=== PATIENT | female | born 1940 | race Caucasian/White ===

== ENCOUNTER → 2017-01-21 | Outpatient (CLI) | payer OTHER | PROVIDERS: ATTEND Nurse Practitioner Family | DX: R13.10 Dysphagia, unspecified (principal); R05 Cough; Z86.73 Personal history of transient ischemic attack (TIA), and cerebral infarction without residual deficits | CPT/HCPCS: 74230; 92611; G8996; G8997; G8998 ==

== ENCOUNTER 2017-03-14 12:29 | Emergency (ER) | payer OTHER ==
[2017-03-14 12:39] VITALS: BP 119/70; PULSE 93; RESP 16; TEMP 98.4; O2SAT 92
[2017-03-14 12:50] LABS: COLOR ORANGE; LEUKOCYTE ESTERASE,URINE 2+ (NEGATIVE); NITRITE,URINE POSITIVE (NEGATIVE)
[2017-03-14 13:04] LABS: BACTERIA 2+ /hpf (NONE SEEN); MUCUS TRACE /lpf (NONE-1+); RBC,URINE 0-1 /hpf (0-3); WBC,URINE >182 /hpf (0-3); YEAST 1+ /hpf (NONE SEEN)
[2017-03-14] MEDS ORDERED: CEPHALEXIN 500 MG CAP PO ONE (13:08)
--- NOTE | 2017-03-14 13:10 | EDPHY ---
H & P Time Seen by Provider: 03/14/17 12:35 HPI/ROS: This patient complains of dysuria, frequency and hematuria. She is accompanied by her expander who also provides history. Patient's symptoms have been present over the past 2 days. Her recent history is notable for pessary placement by her family practitioner-Dr. Kuo last week for urinary incontinence. Patient has a history of stroke in uses a walker to ambulate. She provides basic responses to questions regarding history but her expander elaborates. ROS: No fevers chills or other constitutional symptoms HEENT: No complaints line pulmonary: No new complaints Cardiovascular: No complaints GI: No nausea vomiting : No back pain. No vaginal discharge. 7 point ROS is otherwise negative. Past Medical/Surgical History: Stroke Smoking Status: Never smoked Physical Exam: Physical Exam Vital signs are normal. General: No acute distress Eyes: Pupils equal and react to light. Extraocular motions are intact. Lungs: No respiratory distress. Back: No CVA tenderness Cardiac: Brisk capillary refill is intact throughout. abdomen: Mild suprapubic tenderness with no guarding or rebound. Skin: No rash or pallor. Neuro: Alert With no new focal deficits. Initial differential diagnosis: Cystitis, vaginitis, interstitial cystitis Constitutional: Initial Vital Signs Temperature (C) 36.9 C 03/14/17 12:31 Heart Rate 93 03/14/17 12:31 Respiratory Rate 16 03/14/17 12:31 Blood Pressure 119/70 03/14/17 12:31 O2 Sat (%) 92 03/14/17 12:31 O2 Delivery Mode Room Air Allergies/Adverse Reactions: Latex, Natural Rubber Allergy (Severe, Verified 03/14/17 12:39) Rash procaine HCl [From Novocain] Allergy (Severe, Verified 03/14/17 12:39) nausea Home Medications: Medication Instructions Recorded Amlodipine Besylate 03/14/17 Cephalexin [Keflex (*)] 500 mg PO TID #21 cap 03/14/17 Lisinopril 03/14/17 Plavix 03/14/17 Pravastatin Sodium 03/14/17 MDM/Departure - MDM Diagnostics: urinalysis reveals leukocytosis bacteria consistent with UTI. Cultures pe Medications Given: Discontinued Medications Cephalexin HCl (Keflex) 500 mg PO EDNOW ONE PRN Reason: Protocol Stop: 03/14/17 13:09 Last Admin: 03/14/17 13:15 Dose: 500 mg ED Course/Re-evaluation: discussion: Findings consistent with cystitis. I counseled patient and expander regarding this. She is given a 1st dose of Keflex. I feel communication is a bit limited due to underlying stroke so will cover her with a week's worth of Keflex rather than 3-5 days given potential early pyelonephritis. - Depart Disposition: Home, Routine, Self-Care Clinical Impression: Cystitis Clinical Impression: (Ruled Out): Dysuria Condition: Good Instructions: Urinary Tract Infection in Women (ED) Additional Instructions: Diagnosis: Bladder infection Plan: Drink plenty fluids Keflex antibiotic as prescribed Continue peridium /azo as needed for dysuria Call for recheck by her primary care physician -Dr. Kuo for later this week. Return for any significant worsening despite the treatment plan Prescriptions: Cephalexin [Keflex (*)] 500 mg PO TID #21 cap Referrals: Xiomara Kuo MD [Primary Care Provider] - As per Instructions
== END 2017-03-14 13:19 | disposition home or self-care (01) ==
LOC: CED 12:29
DX: N30.91 Cystitis, unspecified with hematuria (principal); B96.20 Unspecified Escherichia coli [E. coli] as the cause of diseases classified elsewhere; Z91.040 Latex allergy status
CPT/HCPCS: 81003-PO; 81015-PO

== ENCOUNTER 2017-04-07 14:42 | Emergency (ER) | payer OTHER ==
--- NOTE | 2017-04-07 15:19 | EDPHY ---
H & P Time Seen by Provider: 04/07/17 14:55 HPI/ROS: CHIEF COMPLAINT: left leg pain for 1 month HISTORY OF PRESENT ILLNESS: History from patient and caregiver and daughter. She presents with intermittent left leg pain and swelling for the past month which typically involves pain in the thigh on the lateral surface worse with weight-bearing or movement and intermittent swelling. The daughter describes that sometimes he can see her carbajal and sometimes she cannot. This is not associated with injury fall or trauma, skin changes, chest pain or shortness of breath. No weakness or numbness. No hip pain. No fevers or chills. She is waking up over the last couple of days asking for acetaminophen for her left leg which is a bit different than usual. The patient says it only feels different than her previous sciatica because it is not as severe. 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 She saw her physician who ran lab tests a couple of weeks ago. : No incontinence, to urinary tract infections within the last month. A comprehensive 10 point review of systems is otherwise negative aside from elements mentioned in the history of present illness. PAST MEDICAL HISTORY: Includes lumbar spine fusion, hip surgery, hypertension, hyperlipidemia, hemorrhagic and ischemic stroke, vascular dementia and resting tremor. Social history: Here with daughter and caregiver. General Appearance: Alert and conversant, cooperative. Eyes: No scleral icterus. ENT, Mouth: Normal mucous membranes. Respiratory: Normal respiratory effort, breath sounds equal, lungs are clear to auscultation. Cardiovascular: Regular rate and rhythm. Gastrointestinal: Abdomen is soft and non tender. Neurological: Alert and oriented x3. Normally conversant. Face symmetric, normal movement and sensation in all extremities. She wears a brace on her right foot for foot drop after her stroke. Bilateral DTRs 2+ patella. Left foot toes downgoing. No clonus. Straight leg raising positive left leg at 45 degrees. Skin: Warm and dry, no rashes. No redness warmth or blisters or eschar on the left leg. Musculoskeletal: No peripheral edema and no joint swelling. Normal range of motion of left hip knee and ankle without any pain on rotational axial loading of the hip. Compartments are soft. Psychiatric: Not agitated. Emergency Department course/MDM: I think clinically be very unlikely this patient has fracture or arterial occlusion, compartment syndrome, or acute infection. Differential does include but not limited to [place] cyst, DVT, sciatica or muscular. Plan for left lower extremity ultrasound. 1631: normal ultrasound per Dr. Coleman. Results discussed with patient daughter and caregiver, symptomatic care, outpatient follow-up. She is ambulatory to the bathroom with walker. Smoking Status: Never smoked Constitutional: Initial Vital Signs Temperature (C) 36.9 C 04/07/17 14:44 Heart Rate 78 04/07/17 14:44 Respiratory Rate 18 04/07/17 14:44 Blood Pressure 137/83 H 04/07/17 14:44 O2 Sat (%) 94 04/07/17 14:44 O2 Delivery Mode Room Air Allergies/Adverse Reactions: Latex, Natural Rubber Allergy (Severe, Verified 04/07/17 14:43) Rash procaine HCl [From Novocain] Allergy (Severe, Verified 04/07/17 14:43) nausea Home Medications: Medication Instructions Recorded Amlodipine Besylate 03/14/17 Lisinopril 03/14/17 Plavix 03/14/17 Pravastatin Sodium 03/14/17 Cephalexin [Keflex (*)] 500 mg PO 04/07/17 Medical Decision Making - Diagnostics Imaging Results: Imaging Impressions Extremity Venous Study 04/07/17 15:12 Impression: No deep venous thrombosis left leg. Results called and discussed with Dr. Ace Burciaga at 04/07/2017 16:30. Differential Diagnosis: Differential considered including but not limited to fracture, DVT, arterial occlusion, compartment syndrome, cellulitis, sciatica. Departure - Departure Disposition: Home, Routine, Self-Care Clinical Impression: Leg pain, left Condition: Good Instructions: Leg Pain (ED) Additional Instructions: Ultrasound is negative for [place] cyst or blood clot. It is possible this is mild sciatica. Referrals: Xiomara Kuo MD [Primary Care Provider] - As per Instructions
[2017-04-07 17:11] VITALS: BP 115/73; PULSE 68; RESP 16; TEMP 98.2; O2SAT 91
== END 2017-04-07 17:02 | disposition home or self-care (01) ==
DX: M79.605 Pain in left leg (principal); I10 Essential (primary) hypertension; Z91.040 Latex allergy status

== ENCOUNTER → 2017-08-25 | Outpatient (CLI) | payer OTHER | LOC: CIMAGING 14:33 | PROVIDERS: ATTEND Family Medicine | DX: M25.551 Pain in right hip (principal); M54.5 Low back pain; G89.29 Other chronic pain; R93.8 Abnormal findings on diagnostic imaging of other specified body structures; Z96.641 Presence of right artificial hip joint; Z98.1 Arthrodesis status | CPT/HCPCS: 73502-PO ==

== ENCOUNTER 2017-11-10 17:46 | Emergency (ER) | payer OTHER ==
[2017-11-10] MEDS ORDERED: NS 500 ML IV ONE (18:41)
[2017-11-10] MEDS ORDERED: IOPAMIDOL (ISOVUE-300) 100 ML BTL ONE (18:45)
--- NOTE | 2017-11-10 18:53 | EDPHY ---
H & P Time Seen by Provider: 11/10/17 18:15 HPI/ROS: HPI Fall, left thorax injury. 77-year-old female by private vehicle with daughter and son-in-law. This patient has had CVAs in the past. She has some right-sided weakness. She uses a walker to ambulate. Yesterday morning, she got up at 6:00 a.m. To go to bathroom. She leaned to her left side slipped off her walker and fell to the ground hitting primarily the left side of her abdomen and lower chest. She complains of pain and bruising to this area. She denies extremity pain. She did not hit her head. No loss of consciousness. No neck pain. No new loss of sensation or focal weakness. She is not on anticoagulation. ROS: Constitutional: No fever, no chills. No weakness. Respiratory: No cough. No shortness of breath. Cardiac: No chest pain, no palpitations. Gastrointestinal: No abdominal pain, no vomiting, no diarrhea. Genitourinary: No hematuria. Musculoskeletal: No back pain. No neck pain. As above. No extremity pain.. Skin: No rashes. Neurological: No headache. No focal weakness or altered sensation. Past medical history: Lumbar fusion, left hip replacement, CVA x3, hyperlipidemia, hypertension, collar bone fracture, dementia, intention tremor. Social history: Lives with family. Nonsmoker. No alcohol. Physical Exam: General Appearance: Alert, no distress. This patient is responding to questions appropriately and in full sentences. This patient appears well- hydrated and well-nourished. Head: Normocephalic atraumatic. Face: Facial bones are stable on palpation. Eyes: Pupils equal and round and reactive to light, no pallor or injection. No lid erythema or edema. ENT, Mouth: Mucous membranes moist. Dentition is intact. No malocclusion of the jaw. No tongue lacerations or abrasions. Pharynx is clear. The bilateral nasal canals are clear. No septal hematoma. Respiratory: There are no retractions, lungs are clear to auscultation with good air movement bilaterally. Chest wall is stable to AP and lateral palpation. She has got an area of ecchymosis involving the left lateral lower thorax and upper abdomen at the posterior mid axillary line with tenderness on palpation. This starts just below the costal margin. No bony step-off or deformity is noted on palpation. Cardiovascular: Regular rate and rhythm. No murmur. Gastrointestinal: Abdomen is soft and nontender, no masses, bowel sounds normal. Neurological: Motor sensory function is intact. Cranial nerves are normal. Cerebellar function intact. Skin: Warm and dry, no rashes. No lacerations, abrasions or contusions. Musculoskeletal: Neck is supple and nontender. The trachea is midline. No midline cervical, thoracic, lumbar or sacral tenderness on palpation. No flank tenderness on palpation. Extremities are symmetrical, full range of motion. All joints in the bilateral upper and bilateral lower extremities range without pain or impingement. No tenderness on palpation of the long bones in the bilateral upper and bilateral lower extremities. Psychiatric: No agitation. No depression. Database: EKG: Imaging: CT chest with IV contrast: Significant for left-sided anterior lateral nondisplaced rib fractures 9. And 10. Results were discussed with staff radiologist Dr. Huber Starr. Spleen was unremarkable. Other chronic findings. No other significant acute pathology. Procedures: Emergency department course: Vital signs reviewed. IV was placed. She was started on IV normal saline with 500 cc to be given over the next hour. I-STAT creatinine is 1.4. I discussed this with staff radiologist Dr. Huber starr. Renal protective protocol will be used. He feels comfortable with contrast enhancement with a creatinine under 1.5. 8:25 p.m., patient re-evaluated. Pain currently well controlled. I discussed the results of her CT scan as above with her and family. I discussed admission for observation and pain control. The patient does not want to be admitted. The family feels comfortable taking her home. Because of her creatinine I will avoid NSAIDs. Patient will be prescribed [place]. As well as stool softeners. She is also concerned about constipation. I will send her home with magnesium citrate as well. She will follow up with her primary care physician in 1-2 days for re-evaluation. The family can easily return her to the emergency department if required. Return to emergency department precautions were thoroughly discussed with the patient and family. All of their questions were answered. The patient was discharged in good condition. Differential Diagnosis: The differential diagnosis on this patient includes but is not limited to rib fracture, splenic injury, renal contusion. This represents a partial list of diagnoses considered. These considerations are based on history, physical exam , past history, reassessment and diagnostic testing. Smoking Status: Never smoked Constitutional: Initial Vital Signs Temperature (C) 36.8 C 11/10/17 18:05 Heart Rate 77 11/10/17 18:05 Respiratory Rate 16 11/10/17 18:05 Blood Pressure 115/71 11/10/17 18:05 O2 Sat (%) 91 L 11/10/17 18:05 O2 Delivery Mode Room Air Allergies/Adverse Reactions: Latex, Natural Rubber Allergy (Severe, Verified 04/07/17 14:43) Rash procaine HCl [From Novocain] Allergy (Severe, Verified 04/07/17 14:43) nausea Home Medications: Medication Instructions Recorded Amlodipine Besylate 03/14/17 Lisinopril 03/14/17 Pravastatin Sodium 03/14/17 Aleve 11/10/17 Gabapentin 11/10/17 Hydrocodone/APAP 5/325 [[place] 1 - 2 tab PO Q4-6PRN PRN #10 tab 11/10/17 5/325 (*)] Senna 11/10/17 Docusate Sodium [Colace 100 MG (*)] 100 mg PO TID #20 cap 11/11/17 Medical Decision Making - Data Points Medications Given: Discontinued Medications Hydrocodone Bitart/Acetaminophen ([place] 5/325mg Prepack#6) 1 btl TAKEHOME EDNOW ONE Stop: 11/10/17 20:30 Last Admin: 11/10/17 20:45 Dose: 1 btl Sodium Chloride (Ns) 500 mls @ 0 mls/hr IV ONCE ONE; Wide Open PRN Reason: Protocol Stop: 11/10/17 18:42 Last Admin: 11/10/17 18:50 Dose: 500 mls Magnesium Citrate (Magnesium Citrate) 300 ml PO ONCE ONE Stop: 11/10/17 20:29 Last Admin: 11/10/17 20:46 Dose: 300 ml Departure - Departure Disposition: [facility] IP Clinical Impression: Fall, Rib fractures, Renal insufficiency Condition: Good Instructions: Hydrocodone/Acetaminophen (By mouth), How to Use an Incentive Spirometer (ED), Rib Fracture (ED) Additional Instructions: Read and follow provided instructions. Follow-up with your primary care physician in 1-2 days for re-evaluation. You should have you're renal function rechecked in a week. Drink lots of fluids. Keep well hydrated. Take medication as prescribed. [place]/Percocet dosin-2 every 4-[address] not drive on this medication. Return to the emergency department for worsening or uncontrolled pain, difficulty breathing, cough, fever or other serious concerns. Magnesium citrate: Drink entire contents of bottle to treat constipation. Take stool softeners as prescribed 1 on narcotic pain medication. Referrals: Gaby Blackwell MD [Primary Care Provider] - As per Instructions Prescriptions: Docusate Sodium [Colace 100 MG (*)] 100 mg PO TID #20 cap Hydrocodone/APAP 5/325 [[place] 5/325 (*)] 1 - 2 tab PO Q4-6PRN PRN #10 tab PRN Reason: Pain, Moderate
[2017-11-10] MEDS ORDERED: MAGNESIUM CITRATE 300 ML BOTTLE PO ONE (20:28)
[2017-11-10] MEDS ORDERED: HYDROCOD/APAP 5/325 PREPACK#6 BTL TAKEHOME ONE (20:29)
[2017-11-10 21:04] VITALS: BP 123/76
== END 2017-11-10 21:04 ==
DX: S22.42XA Multiple fractures of ribs, left side, initial encounter for closed fracture (principal); E86.9 Volume depletion, unspecified; N28.9 Disorder of kidney and ureter, unspecified; I10 Essential (primary) hypertension; Z86.73 Personal history of transient ischemic attack (TIA), and cerebral infarction without residual deficits; Z91.040 Latex allergy status; W01.198A Fall on same level from slipping, tripping and stumbling with subsequent striking against other object, initial encounter
CPT/HCPCS: 74177; 96360; 99285; Q9967; 82947-QW

== ENCOUNTER 2017-12-22 10:40 | Inpatient (IN) | payer OTHER ==
--- NOTE | 2017-12-22 11:28 | EDPHY ---
H & P Stated Complaint: fall this am .? cause .pt does not remember .~830a Time Seen by Provider: 12/22/17 11:11 HPI/ROS: CHIEF COMPLAINT: Fall, head injury HISTORY OF PRESENT ILLNESS: This is a 77-year-old female on Plavix with a history of dementia who presents with her boyfriend and caregiver. Patient went to the bathroom this morning, using her walker as usual, when the boyfriend heard a fall from the bathroom. There was no witnessed loss of consciousness. He found her on the tile floor. Patient reported immediately that her head hurts. She has been unable to otherwise state what may have caused the fall. Her history is relatively limited secondary to her dementia. She tells me her head hurts in her low back hurts. She denies any chest pain or shortness of breath. She denies any nausea or vomiting. Caregiver and family report that the patient has been otherwise at her usual baseline. Patient was recently admitted to [facility] for a GI hemorrhage felt to be related to ibuprofen is that she was taking after hip fracture. This was approximately 3 weeks ago. REVIEW OF SYSTEMS: Aside from elements discussed in the HPI, a comprehensive 10-point review of systems was reviewed and is negative. PAST MEDICAL HISTORY: CVAs x2. Hip fracture, GI hemorrhage secondary to ibuprofen, lumbar fusion. Vascular dementia. History of footdrop. SOCIAL HISTORY: Here with a caregiver and family. VITAL SIGNS Reviewed by me. GENERAL: Elderly female. Alert. Family reports somewhat more sedated than typical. HEENT: Abrasion at the left occipital region. Eyes: Right eye lid mildly swollen and erythematous. Difficult pupillary exam. Left eye: Unable to adduct, difficulty with AB duction. No icterus, no injection. Mouth: moist mucous membranes. No erythema or lesions. Neck: supple with no adenopathy. No tenderness noted. LUNGS: Clear to auscultation bilaterally, no wheezes, rhonchi or rales. CARDIAC: Regular rate and rhythm, no rubs, murmurs or gallops. ABDOMEN: Soft, nontender, nondistended, bowel sounds normal. BACK: Patient reports tenderness along the lumbar spine. Abrasion noted the top of the T-spine. EXTREMITIES: No trauma. No edema. Braces in place on the right lower extremity to help with footdrop. NEURO: Alert and oriented, cranial nerves 2-12: Asymmetry of the mouth which family reports is old. Left eye: Difficulty with Adduction and abduction. Sensory exam unable to be tested. SKIN: Warm and dry, no rash. PSYCHIATRIC: Seems somewhat somnolent. - Personal History Current Tetanus Diphtheria and Acellular Pertussis (TDAP): Yes Tetanus Vaccine Date: within 10 years - Medical/Surgical History Hx Asthma: No Hx Chronic Respiratory Disease: No Hx Diabetes: No Hx Cardiac Disease: Yes Hx Renal Disease: No Hx Cirrhosis: No Hx Alcoholism: No Hx HIV/AIDS: No Hx Splenectomy or Spleen Trauma: No Other PMH: Lumbar fusion, Hip surgery,fx collarbone with surgery, htn and hyperlipidemia. cva x3 (2 strokes in 2013 hemmorhagic and ischemic; 1 stroke in 2015) -carotid blockage-surgery. vascular dementia; intention tremor - Social History Smoking Status: Never smoked Constitutional: Initial Vital Signs Temperature (C) 36.7 C 12/22/17 10:51 Heart Rate 69 12/22/17 10:51 Respiratory Rate 18 12/22/17 10:51 Blood Pressure 121/53 H 12/22/17 10:51 O2 Sat (%) 96 12/22/17 10:51 O2 Delivery Mode Nasal Cannula O2 (L/minute) 1 Allergies/Adverse Reactions: Latex, Natural Rubber Allergy (Severe, Verified 12/22/17 10:57) Rash procaine HCl [From Novocain] Allergy (Severe, Verified 12/22/17 10:57) nausea methylphenidate [From Ritalin] Allergy (Verified 12/22/17 10:57) Home Medications: Medication Instructions Recorded Lisinopril/Hctz 10/12.5 mg 0.5 ea PO DAILY 03/14/17 [Zestoretic/Prinzide 10/12.5MG (*)] Pravastatin Sodium 20 mg PO DAILY 03/14/17 amLODIPine BESYLATE [Norvasc 5 mg 5 mg PO DAILY 03/14/17 (*)] Gabapentin [Neurontin 100 MG (*)] 200 mg PO BID 11/10/17 ARIPiprazole [Abilify 5 mg (*)] 2.5 mg PO DAILY 12/22/17 Acetaminophen [Tylenol ES 500 mg 1,000 mg PO BID PRN 12/22/17 (*)] Ascorbic Acid [Vitamin C 500 mg 500 mg PO DAILY 12/22/17 (*)] Carboxymethylcellulose 1% [Refresh 1 - 3 drops EACHEYE QID PRN 12/22/17 Celluvisc (*)] Cetirizine [ZyrTEC 10 mg (*)] 10 mg PO DAILY 12/22/17 Clopidogrel Bisulfate [Plavix (*)] 75 mg PO DAILY 12/22/17 Estring 2mg 1 each VG Q90D 12/22/17 Polyethylene Glycol 3350 [Miralax 17 gm PO DAILY 12/22/17 17 gm (*)] buPROPion XL [Wellbutrin Xl] 150 mg PO DAILY 12/22/17 Medical Decision Making ED Course/Re-evaluation: 77-year-old female with an unwitnessed fall today. She has a history of CVAs in the past x3, 1 hemorrhagic according to the family. EKG: Right bundle branch block. CT scan: 1. There is a left occipital subgaleal hematoma, with contrecoup intracranial hemorrhage adjacent to the left anterior interhemispheric falx and interdigitating with the sulci of the left frontal subcortex. There is no associated subfalcine herniation. 2. Moderate underlying cerebral cortical atrophy with chronic microvascular ischemic gliosis, and evidence of old lacunar infarcts involving the right basal ganglia. CT scan the cervical spine demonstrates significant stenosis C3-C4 to C6-C7, no acute injury. Laboratory evaluation is largely unremarkable. Troponin is negative. PT INR is normal. Patient's course discussed with Dr. Paxton Ambrosio. Patient will be admitted to step-down as an isolated head trauma on Plavix. We discussed reversal of Plavix with TXA. DDAVP and platelets are not available to me here at [facility] Emergency Department. Dr. Ambrosio recommendation at this time is to hold on any type of reversal. Patient's course was also discussed with Dr. Ramone Romero. Patient will be transferred to [facility], for an evaluation the emergency department as per trauma system requirements. Dr. Perez is aware of the patient's transfer as well. Patient also had lumbar spine x-ray which does not demonstrate any acute fractures on my reading. Patient's daughter, Isabel, who is power of civil rights attorney, presented to the emergency department. We discussed the findings. She is in agreement with the plan to transfer. We discussed the patient's current code status which is full COR. Daughter understands the situation and the potential severity of the injury. Differential Diagnosis: Differential diagnosis of this patient's fall was considered including but not limited to intracranial injury, CVA, syncope, cardiac arrhythmia, mechanical fall, lacerations, abrasions, and contusions. Consult/Admit Bed Type: Dr Ambrosio, StepDown - Data Points Laboratory Results: Laboratory Results 12/22/17 11:45 12/22/17 11:45 Medications Given: Amlodipine Besylate (Norvasc) 5 mg PO DAILY JANUSZ Stop: 06/21/18 08:59 Last Admin: 12/23/17 07:48 Dose: 5 mg Aripiprazole (Abilify) 2.5 mg PO DAILY JANUSZ Stop: 06/21/18 08:59 Last Admin: 12/23/17 07:48 Dose: 2.5 mg Bupropion HCl (Wellbutrin Xl) 150 mg PO DAILY JANUSZ Stop: 06/21/18 08:59 Last Admin: 12/23/17 07:49 Dose: 150 mg Carbamide Peroxide (Debrox) 5 drop EACHEAR BID JANUSZ Stop: 06/20/18 20:59 Last Admin: 12/23/17 08:00 Dose: 5 drops Cetirizine HCl (Zyrtec) 10 mg PO DAILY JANUSZ Stop: 06/21/18 08:59 Last Admin: 12/23/17 07:48 Dose: 10 mg Gabapentin (Neurontin) 200 mg PO BID JANUSZ Stop: 06/20/18 20:59 Last Admin: 12/23/17 07:49 Dose: 200 mg Sodium Chloride (Ns) 1,000 mls @ 100 mls/hr IV CONT JANUSZ Stop: 06/20/18 19:29 Last Admin: 12/22/17 20:27 Dose: 1,000 mls Melatonin (Melatonin) 3 mg PO HS JANUSZ Stop: 06/20/18 20:59 Last Admin: 12/22/17 20:27 Dose: 3 mg Miscellaneous Medication (Estring 2mg) 1 each VG Q90D JANUSZ Stop: 06/20/18 15:59 Last Admin: 12/22/17 16:33 Dose: Not Given Morphine Sulfate (Morphine) 1 - 2 mg IVP Q1HR PRN PRN Reason: Pain, Severe Unable to Take PO Stop: 01/02/18 04:40 Last Admin: 12/23/17 05:29 Dose: 2 mg Polyethylene Glycol (Miralax) 17 gm PO DAILY [facility] Stop: 06/21/18 08:59 Last Admin: 12/23/17 07:47 Dose: 17 gm Pravastatin Sodium (Pravachol) 20 mg PO DAILY JANUSZ Stop: 06/21/18 08:59 Last Admin: 12/23/17 07:48 Dose: 20 mg Senna/Docusate Sodium (Senokot-S) 1 - 2 tab PO BID JANUSZ PRN Reason: Protocol Stop: 06/20/18 20:59 Last Admin: 12/23/17 07:49 Dose: 1 tab Discontinued Medications Morphine Sulfate (Morphine) 2 mg IVP EDNOW ONE Stop: 12/22/17 13:41 Last Admin: 12/22/17 13:50 Dose: 2 mg Morphine Sulfate (Morphine) 1 - 2 mg IVP Q1HR PRN PRN Reason: Pain, Severe Unable to Take PO Stop: 01/01/18 15:39 Last Admin: 12/23/17 00:46 Dose: 2 mg Departure - Departure Disposition: [facility] Inpatient Acute Clinical Impression: Intracranial hemorrhage Back pain Qualifiers: Back pain location: low back pain Chronicity: unspecified Back pain laterality : midline Sciatica presence: without sciatica Qualified Code(s): M54.5 - Low back pain Fall Qualifiers: Encounter type: initial encounter Qualified Code(s): W19.XXXA - Unspecified fall, initial encounter Condition: Fair
--- NOTE | 2017-12-22 11:46 | CPEKG ---
Heart Rate: 70 RR Interval: 857 P-R Interval: 156 QRSD Interval: 132 QT Interval: 416 QTC Interval: 449 P [place]: 50 QRS [place]: 57 T Wave [place]: -11 EKG Severity - ABNORMAL ECG - EKG Impression: SINUS RHYTHM EKG Impression: RIGHT BUNDLE BRANCH BLOCK Electronically Signed By: Rajat Crawford 25-Dec-2017 07:00:47
[2017-12-22 12:21] LABS: PLATELET COUNT 370 10^3/uL (150-400)
[2017-12-22 12:29] LABS: INR 0.97 (0.83-1.16); PROTIME(PATIENT) 12.8 SEC (12.0-15.0)
[2017-12-22] MEDS ORDERED: TRANEXAMIC ACID 1,000 MG/10 ML VIAL ONE (12:43)
--- NOTE | 2017-12-22 14:44 | EDPHY ---
H & P Stated Complaint: fall this am .? cause .pt does not remember .~830a Time Seen by Provider: 12/22/17 11:11 HPI/ROS: CHIEF COMPLAINT: Fall HISTORY OF PRESENT ILLNESS: Patient is a 77-year-old female transferred from [facility] ER for intracranial hemorrhage and admission. She does not remember the incident but apparently fell in the bathroom this morning. She has found by her boyfriend. She was taken to the [facility] where she had CT of her head and neck that revealed intracranial hemorrhage. She also complains of some right hip pain. Her daughter states that this is somewhat chronic for her and x-rays previously been negative. She has baseline dementia. REVIEW OF SYSTEMS: Constitutional: denies: chills, fever, recent illness, recent injury EENTM: denies: blurred vision, double vision, nose congestion Respiratory: denies: cough, shortness of breath Cardiac: denies: chest pain, irregular heart rate, lightheadedness, palpitations Gastrointestinal/Abdominal: denies: abdominal pain, diarrhea, nausea, vomiting, blood streaked stools Genitourinary: denies: dysuria, frequency, hematuria, pain Musculoskeletal: denies: joint pain, muscle pain Skin: denies: lesions, rash, jaundice, bruising Neurological: denies: headache, numbness, paresthesia, tingling, dizziness, weakness Hematologic/Lymphatic: denies: blood clots, easy bleeding, easy bruising Immunologic/allergic: denies: HIV/AIDS, transplant Nursing assessment reviewed Vital signs reviewed slightly hypoxic Patient is alert not anxious or lethargic and in no distress HEAD: shows no evidence of trauma no raccoon eyes, no Patton sign. NECK: is nontender and has painless range of motion, trachea is midline, EYES: Some neglect to the right visual field. Left eye stops at midline ENT: Normal external inspection, airway intact, no dental or oral injuries, no clotted nasal blood, no septal hematoma, no hemotympanum CARDIOVASCULAR: heart sounds normal, not tachycardic or bradycardic, Chest is non-tender no rib tenderness no palpable fracture, no crepitus, no subcutaneous emphysema RESPIRATORY: no splinting, no paradoxical movements, gross sounds normal, no wheezes no rales no rhonchi, no respiratory distress ABDOMEN: Abdomen is nontender in all 4 quadrants no guarding no rebound, no distention, no hernias, no masses or bruits. GENITAL/RECTAL: Normal external inspection, Stable pelvis NEUROLOGIC/PSYCH: Oriented x3, cranial nerves normal as assessed, face symmetrical, sensation normal, motor grossly normal, not perseverating, cranial nerves II through XII intact with the exception of 6 nerve in left eye which is baseline normal reflexes Aung Coma score: 15 SKIN: Intact, warm, dry, no ecchymosis, no lacerations, nondiaphoretic. BACK: No CVA tenderness, no vertebral point tenderness, no muscle spasm normal range of motion EXTREMITIES: Brace on right lower leg pelvis stable, but points to pain in her right inguinal region nontender able to bear weight, no pulse deficit, normal range of motion, normal color and temperature Source: Patient Exam Limitations: No limitations - Personal History Current Tetanus Diphtheria and Acellular Pertussis (TDAP): Yes Tetanus Vaccine Date: within 10 years - Medical/Surgical History Hx Asthma: No Hx Chronic Respiratory Disease: No Hx Diabetes: No Hx Cardiac Disease: Yes Hx Renal Disease: No Hx Cirrhosis: No Hx Alcoholism: No Hx HIV/AIDS: No Hx Splenectomy or Spleen Trauma: No Other PMH: Lumbar fusion, Hip surgery,fx collarbone with surgery, htn and hyperlipidemia. cva x3 (2 strokes in 2013 hemmorhagic and ischemic; 1 stroke in 2016) -carotid blockage-surgery. vascular dementia; intention tremor - Family History Significant Family History: No pertinent family hx - Social History Smoking Status: Never smoked Alcohol Use: Sober Constitutional: Initial Vital Signs Temperature (C) 36.7 C 12/22/17 10:51 Heart Rate 69 12/22/17 10:51 Respiratory Rate 18 12/22/17 10:51 Blood Pressure 121/53 H 12/22/17 10:51 O2 Sat (%) 96 12/22/17 10:51 O2 Delivery Mode Nasal Cannula O2 (L/minute) 1 Allergies/Adverse Reactions: Latex, Natural Rubber Allergy (Severe, Verified 12/22/17 10:57) Rash procaine HCl [From Novocain] Allergy (Severe, Verified 12/22/17 10:57) nausea methylphenidate [From Ritalin] Allergy (Verified 12/22/17 10:57) Home Medications: Medication Instructions Recorded Lisinopril/Hctz 10/12.5 mg 0.5 ea PO DAILY 08/13/17 [Zestoretic/Prinzide 10/12.5MG (*)] Pravastatin Sodium 20 mg PO DAILY 03/14/17 amLODIPine BESYLATE [Norvasc 5 mg 5 mg PO DAILY 03/14/17 (*)] Gabapentin [Neurontin 100 MG (*)] 200 mg PO BID 11/10/17 ARIPiprazole [Abilify 5 mg (*)] 2.5 mg PO DAILY 12/22/17 Acetaminophen [Tylenol ES 500 mg 1,000 mg PO BID PRN 12/22/17 (*)] Ascorbic Acid [Vitamin C 500 mg 500 mg PO DAILY 12/22/17 (*)] Carboxymethylcellulose 1% [Refresh 1 - 3 drops EACHEYE QID PRN 12/22/17 Celluvisc (*)] Cetirizine [ZyrTEC 10 mg (*)] 10 mg PO DAILY 12/22/17 Clopidogrel Bisulfate [Plavix (*)] 75 mg PO DAILY 12/22/17 Estring 2mg 1 each VG Q90D 12/22/17 Polyethylene Glycol 3350 [Miralax 17 gm PO DAILY 12/22/17 17 gm (*)] buPROPion XL [Wellbutrin Xl] 150 mg PO DAILY 12/22/17 Medical Decision Making - Diagnostics Imaging Results: Imaging Impressions Cervical Spine CT 12/22/17 11:26 Impression: 1. There is a left occipital subgaleal hematoma, with contrecoup intracranial hemorrhage adjacent to the left anterior interhemispheric falx and interdigitating with the sulci of the left frontal subcortex. There is no associated subfalcine herniation. 2. Moderate underlying cerebral cortical atrophy with chronic microvascular ischemic gliosis, and evidence of old lacunar infarcts involving the right basal ganglia. UNENHANCED CT SCAN OF THE CERVICAL SPINE Technique: A multidetector unenhanced helical CT scan was obtained from the clivus caudally through the upper thoracic spine, with images reformatted at 1.00 mm increments, and are reviewed in soft tissue, bone, and lung windows. Parasagittal and paracoronal reconstructed images are reviewed on the workstation. The DFOV is 16.9 cm. A dose reduction protocol was used. Findings: There is a stable configuration of the cervical vertebral body heights and alignments, compared to the reconstructed sequences associated with the CTA of 03/22/2013. There are trace retrolistheses of C3-C4 and C4-C5, and trace degenerative anterolistheses at C7-T1 and T1-2. There is advanced degenerative disk space narrowing at C3-C4, C4-C5, C5-C6, and C6-C7, with mild degenerative narrowing of C7-T1. There are ventral and dorsal traction osteophytes, most pronounced from C3 through C6. There is no acute fracture or facet malalignment. The interspinous distances are appropriate. The patient's head is tilted to the left, which likely accounts for the atlantoaxial alignment , and the appearance is similar to the previous study in 2013. The base and the tip of the dens are intact, and the predental space is normal. The prevertebral soft tissues are normal. There is no paravertebral or epidural hematoma observed. The craniocervical junction, C1-C2 level, and C2-C3 level are otherwise essentially unremarkable (there is minimal circumferential disk bulging at C2-C3, without canal stenosis). There are tycubxzv-qh-tduyyx neural foraminal stenoses seen at C3-C4, C4-C5, C5-C6, and C6-C7, with dorsal disk osteophyte complexes resulting in qmtfzbih-us-btrxlh central canal stenoses, most significant at the C5-C6 level. There is accompanying lateral recess narrowing at each of these levels as well. The lung apices are notable for some pleural parenchymal calcification and scarring, likely reflecting old granulomatous disease. The commercial teller topogram demonstrates evidence for prior ORIF of the mid to distal left clavicle. Impression: Advanced senescent features of the cervical spine, most pronounced from C3-C4 through C6-C7, as above-detailed, with no acute cervical osseous abnormality identified. Findings were discussed with Maxine Sorenson MD at 12:36, on 12/22/2017. If there is further clinical concern regarding the patient's symptoms, correlative MR imaging could be considered, if otherwise not contraindicated. Head CT 12/22/17 11:26 Impression: 1. There is a left occipital subgaleal hematoma, with contrecoup intracranial hemorrhage adjacent to the left anterior interhemispheric falx and interdigitating with the sulci of the left frontal subcortex. There is no associated subfalcine herniation. 2. Moderate underlying cerebral cortical atrophy with chronic microvascular ischemic gliosis, and evidence of old lacunar infarcts involving the right basal ganglia. UNENHANCED CT SCAN OF THE CERVICAL SPINE Technique: A multidetector unenhanced helical CT scan was obtained from the clivus caudally through the upper thoracic spine, with images reformatted at 1.00 mm increments, and are reviewed in soft tissue, bone, and lung windows. Parasagittal and paracoronal reconstructed images are reviewed on the workstation. The DFOV is 16.9 cm. A dose reduction protocol was used. Findings: There is a stable configuration of the cervical vertebral body heights and alignments, compared to the reconstructed sequences associated with the CTA of 03/22/2013. There are trace retrolistheses of C3-C4 and C4-C5, and trace degenerative anterolistheses at C7-T1 and T1-2. There is advanced degenerative disk space narrowing at C3-C4, C4-C5, C5-C6, and C6-C7, with mild degenerative narrowing of C7-T1. There are ventral and dorsal traction osteophytes, most pronounced from C3 through C6. There is no acute fracture or facet malalignment. The interspinous distances are appropriate. The patient's head is tilted to the left, which likely accounts for the atlantoaxial alignment , and the appearance is similar to the previous study in 2012. The base and the tip of the dens are intact, and the predental space is normal. The prevertebral soft tissues are normal. There is no paravertebral or epidural hematoma observed. The craniocervical junction, C1-C2 level, and C2-C3 level are otherwise essentially unremarkable (there is minimal circumferential disk bulging at C2-C3, without canal stenosis). There are dsipbgix-is-lotrpm neural foraminal stenoses seen at C3-C4, C4-C5, C5-C6, and C6-C7, with dorsal disk osteophyte complexes resulting in phejosvn-vu-kirtma central canal stenoses, most significant at the C5-C6 level. There is accompanying lateral recess narrowing at each of these levels as well. The lung apices are notable for some pleural parenchymal calcification and scarring, likely reflecting old granulomatous disease. The commercial teller topogram demonstrates evidence for prior ORIF of the mid to distal left clavicle. Impression: Advanced senescent features of the cervical spine, most pronounced from C3-C4 through C6-C7, as above-detailed, with no acute cervical osseous abnormality identified. Findings were discussed with Maxine Sorenson MD at 12:36, on 12/22/2017. If there is further clinical concern regarding the patient's symptoms, correlative MR imaging could be considered, if otherwise not contraindicated. Lumbar Spine X-Ray 12/22/17 11:28 Impression: 1. Negative for fracture. 2. Multilevel degenerative changes and postoperative changes are noted. 3. See above report for additional findings. Imaging: I viewed and interpreted images myself (Chest x-ray unchanged, pelvic x -ray shows old fracture unchanged from previous.) ED Course/Re-evaluation: The patient has pain in her right hip which is likely chronic considering her fall today I will add an x-ray of her pelvis. Also she is slightly hypoxic although there is poor waveform. Family reports that she complained to them of shortness of breath. I will add a chest x-ray as well. Trauma surgery has been consulted and Neurosurgery has been consulted previously. 3:[address] Perez is here to evaluate the patient. X-rays entered previously printed out at [facility]. Being done now. 3:20 p.m. patient's x-rays appear baseline. Patient's pulse oxygen was changed and she is now saturating 95% on room air. Dr. Perez is admitting her now. Differential Diagnosis: Partial list of the Differential diagnosis considered include but were not limited to; intracranial hemorrhage, pelvic injury, hypoxia and although unlikely based on the history and physical exam, I also considered cervical injury, non accidental trauma, infection, syncope. - Data Points Laboratory Results: Laboratory Results 12/22/17 11:45 12/22/17 11:45 12/22/17 12/22/17 12/22/17 11:45 11:45 11:45 WBC 9.70 10^3/uL H 10^3/uL (3.80-9.50) RBC 4.29 10^6/uL 10^6/uL (4.18-5.33) Hgb 12.7 g/dL g/dL (12.6-16.3) Hct 38.5 % % (38.0-47.0) MCV 89.7 fL fL (81.5-99.8) MCH 29.6 pg pg (27.9-34.1) MCHC 33.0 g/dL g/dL (32.4-36.7) RDW 13.9 % % (11.5-15.2) Plt Count 370 10^3/uL 10^3/uL (150-400) MPV 8.4 fL L fL (8.7-11.7) Neut % (Auto) 76.5 % H % (39.3-74.2) Lymph % (Auto) 13.2 % L % (15.0-45.0) [place] % (Auto) 7.3 % % (4.5-13.0) Eos % (Auto) 2.2 % % (0.6-7.6) Baso % (Auto) 0.5 % % (0.3-1.7) Nucleat RBC Rel Count 0.0 % % (0.0-0.2) Absolute Neuts (auto) 7.42 10^3/uL H 10^3/uL (1.70-6.50) Absolute Lymphs (auto) 1.28 10^3/uL 10^3/uL (1.00-3.00) Absolute Monos (auto) 0.71 10^3/uL 10^3/uL (0.30-0.80) Absolute Eos (auto) 0.21 10^3/uL 10^3/uL (0.03-0.40) Absolute Basos (auto) 0.05 10^3/uL 10^3/uL (0.02-0.10) Absolute Nucleated RBC 0.00 10^3/uL 10^3/uL (0-0.01) Immature Gran % 0.3 % % (0.0-1.1) Immature Gran # 0.03 10^3/uL 10^3/uL (0.00-0.10) PT 12.8 SEC SEC (12.0-15.0) INR 0.97 (0.83-1.16) Sodium 142 mEq/L mEq/L (135-145) Potassium 3.9 mEq/L mEq/L (3.3-5.0) Chloride 104 mEq/L mEq/L (97-110) Carbon Dioxide 26 mEq/l mEq/l (22-31) Anion Gap 12 mEq/L mEq/L (8-16) BUN 35 mg/dL H mg/dL (7-23) Creatinine 1.3 mg/dL H mg/dL (0.6-1.0) Estimated GFR 40 Glucose 92 mg/dL mg/dL (70-100) Calcium 9.5 mg/dL mg/dL (8.5-10.4) Troponin I < 0.012 ng/mL ng/mL (0.000-0.034) Medications Given: Discontinued Medications Morphine Sulfate (Morphine) 2 mg IVP EDNOW ONE Stop: 12/22/17 13:41 Last Admin: 12/22/17 13:50 Dose: 2 mg Departure - Departure Disposition: [facility] Inpatient Acute Clinical Impression: Intracranial hemorrhage Back pain Qualifiers: Back pain location: low back pain Chronicity: unspecified Back pain laterality : midline Sciatica presence: without sciatica Qualified Code(s): M54.5 - Low back pain Fall Qualifiers: Encounter type: initial encounter Qualified Code(s): W19.XXXA - Unspecified fall, initial encounter Condition: Fair
[2017-12-22] MEDS ORDERED: ACETAMINOPHEN 325 MG TAB PO PRN (15:40)
[2017-12-22] MEDS ORDERED: CARBOXYMETHYLCELLULOSE 1% 0.4 ML DROPERETTE EACHEYE PRN (15:47)
--- NOTE | 2017-12-22 15:50 | PDGENHP ---
History and Physical - Chief Complaint headache post fall - History of Present Illness Vonda was at home with her boyfriend and a magazine repairer. Syed heard a crash in the bathroom and found Vonda on the ground. She was conscious, but could not remember how or why she fell. She was brought to the [facility] and was seen by Dr. Sorenson who initiated her work up. On CT she was found to have left frontal ICH and she was transferred to [facility] ED for a trauma assessment and admission for neuro-observation. Dr. Ambrosio was consulted and discussed her case with Dr. Sorenson. Vonda remains amnestic for the event and complains of headache. She denies visual disturbances, chest pain, abdominal pain. She has fallen several times in the past couple of years and has sustained multiple injuries as a result History Information - Allergies/Home Medication List Allergies/Adverse Reactions: Latex, Natural Rubber Allergy (Severe, Verified 12/22/17 10:57) Rash procaine HCl [From Novocain] Allergy (Severe, Verified 12/22/17 10:57) nausea methylphenidate [From Ritalin] Allergy (Verified 12/22/17 10:57) Home Medications: Lisinopril/Hctz 10/12.5 mg [Zestoretic/Prinzide 10/12.5MG (*)] 0.5 ea PO DAILY 03/14/17 [Last Taken 12/22/17] Pravastatin Sodium 20 mg PO DAILY 03/14/17 [Last Taken 12/22/17] amLODIPine BESYLATE [Norvasc 5 mg (*)] 5 mg PO DAILY 03/14/17 [Last Taken ] Gabapentin [Neurontin 100 MG (*)] 200 mg PO BID 11/10/17 [Last Taken 12/22/17] ARIPiprazole [Abilify 5 mg (*)] 2.5 mg PO DAILY 12/22/17 [Last Taken Unknown] Acetaminophen [Tylenol ES 500 mg (*)] 1,000 mg PO BID PRN 12/22/17 [Last Taken Unknown] Ascorbic Acid [Vitamin C 500 mg (*)] 500 mg PO DAILY 12/22/17 [Last Taken Unknown] Carboxymethylcellulose 1% [Refresh Celluvisc (*)] 1 - 3 drops EACHEYE QID PRN [Last Taken Unknown] Cetirizine [ZyrTEC 10 mg (*)] 10 mg PO DAILY 12/22/17 [Last Taken 12/22/17] Clopidogrel Bisulfate [Plavix (*)] 75 mg PO DAILY 12/22/17 [Last Taken 12/22/17] Estring 2mg 1 each VG Q90D 12/22/17 [Last Taken Unknown] Polyethylene Glycol 3350 [Miralax 17 gm (*)] 17 gm PO DAILY 12/22/17 [Last Taken 12/22/17] buPROPion XL [Wellbutrin Xl] 150 mg PO DAILY 12/22/17 [Last Taken 12/22/17] I have personally reviewed and updated: family history, medical history, social history - Past Medical History CVA, hypertension, TIA - Surgical History Reports: vascular surgery (carotid endarterectomy) Additional surgical history: Right WILD, ORIF left clavicle fracture - Social History Smoking Status: Never smoked Alcohol Use: Sober Drug Use: None Additional social history: here with her bofriend Syed and one of her daughters. She lives independently with a caregive during the day Review of Systems Review of Systems: Constitutional: Reports: recent injury Cardiac: Reports: syncope Respiratory: Reports: no symptoms Genitourinary: Reports: no symptoms Muscolosketal: Reports: joint pain (chronic hip and low back pain) Skin: Reports: no symptoms Neurological: Reports: pre-existing deficit (right foot drop) Hematologic/Lymphatic: Reports: other (chronically on Plavix for prior CVA) Physical Exam Physical Exam: Temp Pulse Resp BP Pulse Ox 36.5 C 65 16 145/116 H 98 12/22/17 14:37 12/22/17 14:37 12/22/17 14:37 12/22/17 14:37 12/22/17 14:37 O2 (L/minute) 2 Constitutional: other (frail appearing elderly female in mild distress) Eyes: PERRL, EOMI (unable to track to the left) Cardiovascular: regular rate and rhythym, systolic murmur Peripheral Pulses: 1+: dorsalis-pedis (R), dorsalis-pedis (L) Respiratory: no respiratory distress, clear to auscultation, reduced air movement Gastrointestinal: normoactive bowel sounds, soft, non-tender abdomen Genitourinary: no bladder fullness Skin: warm Musculoskeletal: other (symmetrical motor strength, right posterior splint due to chronic right foot drop) Lymph, Heme, Immunologic: no cervical LAD, no supraclavicular LAD Lab Data & Imaging Review 12/22/17 11:45 12/22/17 11:45 WBC 9.70 10^3/uL (3.80-9.50) H 12/22/17 11:45 RBC 4.29 10^6/uL (4.18-5.33) 12/22/17 11:45 Hgb 12.7 g/dL (12.6-16.3) 12/22/17 11:45 Hct 38.5 % (38.0-47.0) 12/22/17 11:45 MCV 89.7 fL (81.5-99.8) 12/22/17 11:45 MCH 29.6 pg (27.9-34.1) 12/22/17 11:45 MCHC 33.0 g/dL (32.4-36.7) 12/22/17 11:45 RDW 13.9 % (11.5-15.2) 12/22/17 11:45 Plt Count 370 10^3/uL (150-400) 12/22/17 11:45 MPV 8.4 fL (8.7-11.7) L 12/22/17 11:45 Neut % (Auto) 76.5 % (39.3-74.2) H 12/22/17 11:45 Lymph % (Auto) 13.2 % (15.0-45.0) L 12/22/17 11:45 Christian % (Auto) 7.3 % (4.5-13.0) 12/22/17 11:45 Eos % (Auto) 2.2 % (0.6-7.6) 12/22/17 11:45 Baso % (Auto) 0.5 % (0.3-1.7) 12/22/17 11:45 Nucleat RBC Rel Count 0.0 % (0.0-0.2) 12/22/17 11:45 Absolute Neuts (auto) 7.42 10^3/uL (1.70-6.50) H 12/22/17 11:45 Absolute Lymphs (auto) 1.28 10^3/uL (1.00-3.00) 12/22/17 11:45 Absolute Monos (auto) 0.71 10^3/uL (0.30-0.80) 12/22/17 11:45 Absolute Eos (auto) 0.21 10^3/uL (0.03-0.40) 12/22/17 11:45 Absolute Basos (auto) 0.05 10^3/uL (0.02-0.10) 12/22/17 11:45 Absolute Nucleated RBC 0.00 10^3/uL (0-0.01) 12/22/17 11:45 Immature Gran % 0.3 % (0.0-1.1) 12/22/17 11:45 Immature Gran # 0.03 10^3/uL (0.00-0.10) 12/22/17 11:45 PT 12.8 SEC (12.0-15.0) 12/22/17 11:45 INR 0.97 (0.83-1.16) 12/22/17 11:45 Sodium 142 mEq/L (135-145) 12/22/17 11:45 Potassium 3.9 mEq/L (3.3-5.0) 12/22/17 11:45 Chloride 104 mEq/L (97-110) 12/22/17 11:45 Carbon Dioxide 26 mEq/l (22-31) 12/22/17 11:45 Anion Gap 12 mEq/L (8-16) 12/22/17 11:45 BUN 35 mg/dL (7-23) H 12/22/17 11:45 Creatinine 1.3 mg/dL (0.6-1.0) H 12/22/17 11:45 Estimated GFR 40 12/22/17 11:45 Glucose 92 mg/dL (70-100) 12/22/17 11:45 Calcium 9.5 mg/dL (8.5-10.4) 12/22/17 11:45 Troponin I < 0.012 ng/mL (0.000-0.034) 12/22/17 11:45 Visualized and Interpreted Chest x-ray results: Yes Chest X-Ray results: no infiltrate, normal heart size Visualized and Interpreted imaging results: Yes Interpretation: left frontal ICH (contra-coup injury) left occipital sub-galeal hematoma. cervical spine with degenerative changes, but no acute fracture. chronic pelvic fracture with intact right WILD Assessment & Plan Assessment: Back pain acute on chronic without evidence for new fracture Fall at home/possible syncope Intracranial hemorrhage (Acute) Hx CVA right total hip arthroplasty, chronic pelvic fracture HTN altered level of consciousness (at baseline per magazine repairer, boyfriend and daughter) Plan: Admit to SDU for frequent neurochecks Neurosurgery consult-Dr. Ambrosio ? repeat CT Hold Plavix VTE prophylaxis with SCDs initially PT/OT/ST consults requested Tertiary survey in AM ECG/ECHO ordered telemetry monitoring Hospitalist consult
[2017-12-22] MEDS ORDERED: ESTRING VG SCH (16:00)
--- NOTE | 2017-12-22 16:40 | PDMN ---
Medical Necessity Medical necessity: Pt meets INPT criteria per MD and MCG M-77 Traumatic Brain Injury, Nonsurgical Treatment (fall at home with left frontal ICH, L occipital sub-galeal hematoma; hx CVA, WILD, htn, altered LOC).
--- NOTE | 2017-12-22 17:51 | CPEKG ---
Heart Rate: 77 RR Interval: 779 P-R Interval: 168 QRSD Interval: 140 QT Interval: 408 QTC Interval: 462 P Noble: 58 QRS Noble: 73 T Wave Noble: -38 EKG Severity - ABNORMAL ECG - EKG Impression: SINUS RHYTHM EKG Impression: RIGHT BUNDLE BRANCH BLOCK Electronically Signed By: Karson Pinto 23-Dec-2017 10:48:49
--- NOTE | 2017-12-22 19:03 | PDHOSCONS ---
History and Physical - Chief Complaint Acute headache - History of Present Illness Primary care provider: Dr. Xiomara Kuo HPI: 77-year-old female presenting with acute headache located along the posterior right occiput with associated unwitnessed fall. Per report from patient and her home caregiver, the patient had been in her usual state of health on the morning of presentation when she experienced a fall in the bathroom which was unwitnessed at approximately 8:30 a.m.. The patient's boyfriend reportedly heard a commotion, he responded to the scene, any help the patient get back into bed. Upon arrival of the patient's caregiver at 9:00 a.m. , medical assistance was contacted. patient reports that her headache began after her fall, with some notable blood on her posterior scalp. Duration of the headache was ongoing and was somewhat alleviated by some Tylenol received in the emergency department. The patient denies any other physical trauma or discomfort. She reports that she has no recollection of the events immediately preceding her fall. Her home caregiver reports that the patient has chronic short-term memory impairment. She otherwise denies any recent reduction in urine output, but reports the patient has noted increased urinary frequency. The patient denies feeling lightheaded upon standing and she denies any other infectious symptoms. History Information - Allergies/Home Medication List Allergies/Adverse Reactions: Latex, Natural Rubber Allergy (Severe, Verified 12/22/17 10:57) Rash procaine HCl [From Novocain] Allergy (Severe, Verified 12/22/17 10:57) nausea methylphenidate [From Ritalin] Allergy (Verified 12/22/17 10:57) Home Medications: Lisinopril/Hctz 10/12.5 mg [Zestoretic/Prinzide 10/12.5MG (*)] 0.5 ea PO DAILY 03/14/17 [Last Taken 12/22/17] Pravastatin Sodium 20 mg PO DAILY 03/14/17 [Last Taken 12/22/17] amLODIPine BESYLATE [Norvasc 5 mg (*)] 5 mg PO DAILY 03/14/17 [Last Taken ] Gabapentin [Neurontin 100 MG (*)] 200 mg PO BID 11/10/17 [Last Taken 12/22/17] ARIPiprazole [Abilify 5 mg (*)] 2.5 mg PO DAILY 12/22/17 [Last Taken Unknown] Acetaminophen [Tylenol ES 500 mg (*)] 1,000 mg PO BID PRN 12/22/17 [Last Taken Unknown] Ascorbic Acid [Vitamin C 500 mg (*)] 500 mg PO DAILY 12/22/17 [Last Taken Unknown] Carboxymethylcellulose 1% [Refresh Celluvisc (*)] 1 - 3 drops EACHEYE QID PRN [Last Taken Unknown] Cetirizine [ZyrTEC 10 mg (*)] 10 mg PO DAILY 12/22/17 [Last Taken 12/22/17] Clopidogrel Bisulfate [Plavix (*)] 75 mg PO DAILY 12/22/17 [Last Taken 12/22/17] Estring 2mg 1 each VG Q90D 12/22/17 [Last Taken Unknown] Polyethylene Glycol 3350 [Miralax 17 gm (*)] 17 gm PO DAILY 12/22/17 [Last Taken 12/22/17] buPROPion XL [Wellbutrin Xl] 150 mg PO DAILY 12/22/17 [Last Taken 12/22/17] I have personally reviewed and updated: family history, medical history, social history, surgical history - Past Medical History 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 Recent middle GI bleed and extensive workup at at [facility]. Hemorrhoids. Malnutrition. Constipation. Chronic groin pain. Carotid stenosis - Surgical History Reports: vascular surgery (carotid endarterectomy) Additional surgical history: Right WILD, ORIF left clavicle fracture, lumbar fusion - Family History Additional family history: No recent sick family contacts, parents are - Social History Smoking Status: Never smoked Alcohol Use: Sober Drug Use: None Additional social history: here with her bofriend Syed and one of her daughters. She lives independently with a caregive during the day Review of Systems Review of Systems: ROS: 10pt was reviewed & negative except for what was stated in HPI & below Genitourinary: Reports: frequency Neurological: Reports: headache, tremors, other (Chronic memory impairment) Physical Exam Physical Exam: Temp Pulse Resp BP Pulse Ox 36.6 C 71 12 136/57 H 98 12/22/17 16:40 12/22/17 16:40 12/22/17 16:40 12/22/17 16:40 12/22/17 16:40 O2 (L/minute) 1 Constitutional: no apparent distress, not in pain, chronically ill appearing, No uncomfortable Eyes: PERRL, anicteric sclera Ears, Nose, Mouth, Throat: moist mucous membranes, hearing normal, ears appear normal, no oral mucosal ulcers Cardiovascular: systolic murmur (1/6 at the sternum), No irregularly irregular, No carotid bruit, No tachycardia, No edema Respiratory: no respiratory distress, no rales or rhonchi, clear to auscultation Gastrointestinal: normoactive bowel sounds, soft, non-tender abdomen, no palpable masses, No distension Genitourinary: no bladder fullness, no bladder tenderness Skin: other (Bleeding along the posterior right scalp, some scattered ecchymoses bilateral upper extremities) Musculoskeletal: other (No tenderness along the left clavicle, minimal tenderness along the left anterior ribs) Neurologic: sensation intact bilaterally, other (Alert awake oriented x2 to person and place only), No weakness (Motor strength 5/5 bilateral upper and lower extremities), No CN II-XII Intact (Left eye unable to abduct beyond midline, right-sided tongue deviation) Psychiatric: not anxious, flat affect, poor memory, other (Concentration 7/7), No agitated Lab Data & Imaging Review 12/22/17 11:45 12/22/17 11:45 WBC 9.70 10^3/uL (3.80-9.50) H 12/22/17 11:45 RBC 4.29 10^6/uL (4.18-5.33) 12/22/17 11:45 Hgb 12.7 g/dL (12.6-16.3) 12/22/17 11:45 Hct 38.5 % (38.0-47.0) 12/22/17 11:45 MCV 89.7 fL (81.5-99.8) 12/22/17 11:45 MCH 29.6 pg (27.9-34.1) 12/22/17 11:45 MCHC 33.0 g/dL (32.4-36.7) 12/22/17 11:45 RDW 13.9 % (11.5-15.2) 12/22/17 11:45 Plt Count 370 10^3/uL (150-400) 12/22/17 11:45 MPV 8.4 fL (8.7-11.7) L 12/22/17 11:45 Neut % (Auto) 76.5 % (39.3-74.2) H 12/22/17 11:45 Lymph % (Auto) 13.2 % (15.0-45.0) L 12/22/17 11:45 [place] % (Auto) 7.3 % (4.5-13.0) 12/22/17 11:45 Eos % (Auto) 2.2 % (0.6-7.6) 12/22/17 11:45 Baso % (Auto) 0.5 % (0.3-1.7) 12/22/17 11:45 Nucleat RBC Rel Count 0.0 % (0.0-0.2) 12/22/17 11:45 Absolute Neuts (auto) 7.42 10^3/uL (1.70-6.50) H 12/22/17 11:45 Absolute Lymphs (auto) 1.28 10^3/uL (1.00-3.00) 12/22/17 11:45 Absolute Monos (auto) 0.71 10^3/uL (0.30-0.80) 12/22/17 11:45 Absolute Eos (auto) 0.21 10^3/uL (0.03-0.40) 12/22/17 11:45 Absolute Basos (auto) 0.05 10^3/uL (0.02-0.10) 12/22/17 11:45 Absolute Nucleated RBC 0.00 10^3/uL (0-0.01) 12/22/17 11:45 Immature Gran % 0.3 % (0.0-1.1) 12/22/17 11:45 Immature Gran # 0.03 10^3/uL (0.00-0.10) 12/22/17 11:45 PT 12.8 SEC (12.0-15.0) 12/22/17 11:45 INR 0.97 (0.83-1.16) 12/22/17 11:45 Sodium 142 mEq/L (135-145) 12/22/17 11:45 Potassium 3.9 mEq/L (3.3-5.0) 12/22/17 11:45 Chloride 104 mEq/L (97-110) 12/22/17 11:45 Carbon Dioxide 26 mEq/l (22-31) 12/22/17 11:45 Anion Gap 12 mEq/L (8-16) 12/22/17 11:45 BUN 35 mg/dL (7-23) H 12/22/17 11:45 Creatinine 1.3 mg/dL (0.6-1.0) H 12/22/17 11:45 Estimated GFR 40 12/22/17 11:45 Glucose 92 mg/dL (70-100) 12/22/17 11:45 Calcium 9.5 mg/dL (8.5-10.4) 12/22/17 11:45 Troponin I < 0.012 ng/mL (0.000-0.034) 12/22/17 11:45 Visualized and Interpreted imaging results: Yes Interpretation: Telemetry demonstrating normal sinus mechanism Visualized and Interpreted EKG results: Yes EKG Interpretation: Positive for: other (Right bundle branch block) Assessment & Plan Assessment: 77-year-old female presenting with acute unwitnessed traumatic fall with subsequent intracranial hemorrhage Plan: 1. Intracranial hemorrhage. Acute, evidenced by left occipital hemorrhage on head CT, repeat head CT per Neurosurgery, currently nonsurgical -recommend keeping blood pressure less than 140, currently receiving home antihypertensives -under the direction of the neurosurgery service 2. Unwitnessed fall. Traumatic, unclear whether this was secondary to syncope versus mechanical with subsequent head trauma and retrograde amnesia -reviewed outside records including 11/29/2015 carotid ultrasounds demonstrating no focal stenosis, 12/20/2015 echocardiogram demonstrating left ventricular hypertrophy and diastolic dysfunction but no significant valvular abnormalities , 12/20/[address] Ammon Landrum indicating that the patient' s falls at that time were felt to be secondary to marginal blood pressure, encephalopathy from chronic CVA and vascular dementia resulting in imbalance -although it is certainly possible that the patient's fall may have been syncopal in nature, her vascular dementia and numerous comorbidities precludes potential benefit of any kind of further intervention such as pacemaker for any potential underlying arrhythmia and I would not recommend additional outpatient 30 day event monitor or additional cardiovascular workup at this time as any potentially revealed underlying diagnoses would most likely not result in additional intervention -that being said, the patient's home antihypertensive certainly could be adjusted if she is demonstrating orthostasis, so would agree with checking orthostatics at this time -I believe that the biggest risk for this patient is gait instability and this is likely secondary to her underlying vascular dementia and previous CVAs, and although the patient was scheduled to reestablish with a neurologist in the short term, this has yet to be implemented and I would recommend that we have Neurology see her here so that they are able to establish a baseline with the patient, establish follow-up care, and continue assisting in care discussions between the patient and her family as I think that the patient is more appropriate for 24/7 support at home versus care home facility, with the addition of palliative care services given her frequent falls and high risk of short-term worsening morbidity and/or mortality 3. Acute kidney injury versus chronic kidney disease stage 3. Reviewed outside records including 11/10/2017 emergency department evaluation by Dr. Sveta Bales, the patient was evaluated for mechanical fall at that time with some abdominal and chest trauma, creatinine was 1.4, patient was offered observation at that time and she declined -reviewed patient's previous creatinine levels demonstrates that her baseline has been less than 1.0, so it is unclear to me whether the patient's renal function has recently worsened or whether she is experiencing some acute hypovolemia -will hold her JESSICA-inhibitor/hydrochlorothiazide -will give some IV fluids overnight and reassess creatinine in urine output in a.m. 4. Traumatic rib fracture. Left side, 8th rib, incentive spirometer and trauma care 5. Chronic encephalopathy. 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 Hypertension. Continue amlodipine, continue holding other meds medications 7. Chronic constipation. A bowel regiment placed The hospital Medicine service will continue to consult in this patient's regular care.
[2017-12-22] MEDS ORDERED: NS 1,000 ML IV SCH (19:30)
[2017-12-22] MEDS ORDERED: LACTULOSE 20 GM/30 ML UDCUP PO PRN (19:47)
[2017-12-22] MEDS ORDERED: BISACODYL 10 MG SUPP PR PRN (19:47)
--- NOTE | 2017-12-22 20:06 | SOAPPROG ---
Downtime Inpatient MD Late Entry SOAP Note: Pt c/o POSEY and right hip pain/neuro exam at baseline/VSS Discussed care with Dr. Fernando, his consult is appreciated Repeat CT pending. Non-displaced left 8th rib fx. noted on CXR Continue monitoring neuro exam S MD Ana, FACS
[2017-12-22] MEDS: SENNOSIDES/DOCUSATE SODIUM TAB PO SCH (20:26)
[2017-12-22] MEDS: GABAPENTIN 100 MG CAP PO SCH (20:26)
[2017-12-22] MEDS: MELATONIN 3 MG TAB PO SCH (20:27)
[2017-12-22] MEDS: CARBAMIDE PEROXIDE 15 ML OTIC.BTL EACHEAR SCH (21:23)
[2017-12-23] MEDS: POLYETHYLENE GLYCOL 3350 17 GM PKT PO SCH (07:47)
[2017-12-23] MEDS: CETIRIZINE 10 MG TAB PO SCH (07:48)
[2017-12-23] MEDS: amLODIPine BESYLATE 5 MG TAB PO SCH (07:48)
[2017-12-23] MEDS: PRAVASTATIN SODIUM 20 MG TAB PO SCH (07:48)
[2017-12-23] MEDS: ARIPiprazole 5 MG TAB PO SCH (07:48)
[2017-12-23] MEDS: SENNOSIDES/DOCUSATE SODIUM TAB PO SCH ×2 (07:49→20:36)
[2017-12-23] MEDS: GABAPENTIN 100 MG CAP PO SCH ×2 (07:49→20:36)
[2017-12-23] MEDS: buPROPion XL 150 MG TAB PO SCH (07:49)
[2017-12-23] MEDS: CARBAMIDE PEROXIDE 15 ML OTIC.BTL EACHEAR SCH ×2 (08:00→20:36)
--- NOTE | 2017-12-23 08:02 | GCON ---
[f rep st] CONSULTATION NEUROSURGERY DATE OF CONSULTATION: 12/22/2017 The patient was seen and evaluated at 3 p.m. on 12/22/2017, on the step-down unit at [facility]. HPI: The patient is a 77-year-old woman with dementia who presented after an unwitnessed fall in the bathroom. Her family states that she was in her normal state of health, but had a fall in the bathr oom about 8:30 this morning. Since that time, she has been pretty much at her baseline mental status , but had some headache afterwards. She [place] [facility] [place] where a CT of the head was done which showed a small amount of left parafalcine subarachnoid hemorrhage without any mass effect or shift. The patient was on Plavix previously due to previous strokes. Her family says she has be en in [facility] recently with GI bleeding, but was kept on Plavix. She had upper and l ower GI series, as well as several other studies. Ultimately, it was decided to keep her on Plavix. She has had several strokes over the last 2 years, and her daughter says these were related to anest hetics each time. Currently, she complains of minimal headache, but has no other major complaints. She has no recollection of the time of the fall. She denies any lightheadedness or dizziness current ly. REVIEW OF SYSTEMS: A 10-point review of systems is negative other than that described above in HPI. PAST MEDICAL HISTORY: 1. CVA x3. 2. Vascular dementia. 3. Hypertension. 4. Multiple TIAs. 5. Intention tremor. 6. GI bleed. 7. Hemorrhoids. 8. Malnutrition. 9. Constipation. 10. Right hip replacement with chronic right hip pain. 11. Carotid endarterectomy. 12. ORIF of left clavicle fracture. ALLERGIES: 1. Latex. 2. Procaine. 3. Methylphenidate. HOME MEDICATIONS: 1. Lisinopril/hydrochlorothiazide. 2. Pravastatin. 3. Amlodipine. 4. Gabapentin. 5. Abilify. 6. Tylenol. 7. Ascorbic acid. 8. Zyrtec. 9. Plavix. 10. Estring. 11. Wellbutrin. SOCIAL HISTORY: The patient is a lifelong nonsmoker. She does not drink any alcohol. She presents with her boyfriend, Syed, and her daughter. She lives independently with her caregiver during the d ay because of her dementia. FAMILY HISTORY: Reviewed with the patient and family, but is noncontributory to this admission. PHYSICAL EXAM: VITAL SIGNS: Currently, she is afebrile with normal stable vital signs. GENERAL LINDA EARANCE: She is awake, alert, and oriented x2. She does not know the date. NEUROLOGIC: Her pupils are equal, round, and reactive to light. Her left eye seems to have a 6 nerve palsy and this may be chronic. She is not currently complaining of diplopia. Her face is symmetric. Tongue is midline. She has 5/5 strength at the deltoids, biceps, triceps, wrist extension, and hardware installer bilaterally. There is no pronator drift. In the lower extremity, she has a brace on the right ankle because of foot dr op which is chronic. Otherwise, she has 5/5 strength in the hip flexors, extensors; knee flexors, ex tensors; and plantar and dorsiflexion bilaterally. She does have a bit of a flat affect, but otherwi se is well appearing. IMAGING REVIEW: See HPI. ASSESSMENT AND PLAN: The patient is a 77-year-old woman with dementia, who had an unwitnessed fall a t home this morning. Secondary to the fall, she has a very small amount of traumatic subarachnoid he morrhage in the parafalcine area on the left side. There is no mass effect or shift. Overall, this bleed is rather inconsequential, but would recommend a repeat scan given that she is on Plavix. I do not think that she needs a massive platelet transfusion to reverse the Plavix unless the bleed appea rs to be bigger on the next scan. She will get a workup from the medicine team regarding the reason for her fall, but I would have some concern that it may be secondary to recent gastrointestinal bleed s. We will follow along and can help as needed, but if the repeat scan this evening is stable, I do not think she needs any further scans unless she should develop further neurologic symptoms. Thanks for the kind consultation. /[id number]/MODL
[2017-12-23] MEDS ORDERED: LISINOPRIL/HCTZ 10/12.5 MG 1 EA TAB PO SCH (09:00)
[2017-12-23] MEDS ORDERED: HYDROmorphONE/DILAUDID 2 MG TAB PO PRN (11:05)
[2017-12-23] MEDS ORDERED: PANTOPRAZOLE SODIUM 40 MG VIAL IVP SCH (11:15)
--- NOTE | 2017-12-23 11:17 | TRAUMAPNT ---
Trauma Tertiary Progress Note New Findings: No new findings Assessment/Plan: PAD#1 12/23/2017 Assessment: At baseline, No complaints, Oriented to place/person, date = september 2017, cannot protrude tongue, will not cooperate with eye exam, New data - rib fracture is several weeks old F/u CT was unchanged Plan: Appreciate Dr. Fernando's input - will ask for neurology consult Continue to observe in SDU x 24 hours Await Neurology consult Start PPI given recent GI bleed on Plavix Subjective: No complaints Objective: Vital Signs Temp Pulse Resp BP Pulse Ox 36.4 C 77 17 122/62 H 93 12/23/17 03:48 12/23/17 06:56 12/23/17 06:56 12/23/17 06:56 12/23/17 06:56 Laboratory Results 12/23/17 05:43 12/22/17 12/23/17 12/24/17 05:59 05:59 05:59 Intake Total 1364 Output Total 200 Balance 1164 PT 12.8 SEC (12.0-15.0) 12/22/17 11:45 INR 0.97 (0.83-1.16) 12/22/17 11:45 Physical Exam - Physical Exam General Appearance: no apparent distress EENT: other (left occipital abrasion stable/minimal) Neck: non-tender, full range of motion, supple Respiratory: chest non-tender, lungs clear, normal breath sounds Cardiac/Chest: regular rate, rhythm Abdomen: normal bowel sounds, non-tender, soft Pelvic Exam: deferred Rectal: deferred Back: Normal inspection, Other (left upper back skion lesion compatible with a squamous process) Skin: normal color, warm/dry Extremities: normal range of motion, non-tender, normal inspection Neuro/Psych: no motor/sensory deficits, other (see above and Dr. Ambrosio's note) Time Spent w/Patient (minutes): 35
--- NOTE | 2017-12-23 11:55 | NEUSURGPN ---
Assessment/Plan: A/P:77 yo female,hx of dementia, with fall in bathroom on 12/22. 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 Ambrosio S: Patient has no complaints this morning, denies headache, dizziness. O: NAD, VSS At baseline, alert to person, time (september 2017), place CN II-XII grossly intact PERRL, EOMI intact but does not follow exam very well BUE/BLE 5/5 Sensation intact to lt touch - Physician Discussed Patient with : Daily Neurosurgery Physical Exam - Vitals, I&O, Labs I and O 12/22/17 12/23/17 12/24/17 05:59 05:59 05:59 Intake Total 1364 Output Total 200 Balance 1164 Weight 55.33 kg Intake: Oral (ml) 500 IV Infused (ml) 864 Ns 1,000 ml @ 100 mls/hr 864 IV CONT JANUSZ Rx#: [id number] Output: Urine (ml) 200 Bedside Commode 0 Toilet 200 Other: Number of Voids 1 Incontinence 1 Toilet 1 Post Void Residual Scan Volume (ml) Toilet 106 Vital Signs Temp Pulse Resp BP Pulse Ox 36.4 C 77 17 122/62 H 93 12/23/17 03:48 12/23/17 06:56 12/23/17 06:56 12/23/17 06:56 12/23/17 06:56 Laboratory Results 12/23/17 05:43 ICD10 Worksheet Patient Problems: Problems Problem Status Onset Back pain Acute Fall Acute Intracranial hemorrhage Acute Altered mental status Acute Cerebral hemorrhage Acute Cerebral infarction Acute Failure to thrive in adult Acute Syncope Acute UTI (urinary tract infection) Acute
[2017-12-23] MEDS: PANTOPRAZOLE SODIUM 40 MG TAB PO SCH (14:44)
--- NOTE | 2017-12-23 14:44 | HOSPPROG ---
Hospitalist Progress Note Assessment/Plan: 77-year-old female presenting with acute unwitnessed traumatic fall with subsequent intracranial hemorrhage Plan: # Intracranial hemorrhage. left occipital hemorrhage noted on personal review of head CT, repeat head CT per Neurosurgery stable, goal sbp < 140 # fall: patient with hx of recurrent falls and unstable gait, discussed with family and this has been an issue even with caregivers at bedside. PT/OT involved, will need ongoing f/u care # kortney: improved overnight , holding krys/hctz but will resume in am if remains stable # dementia: with hx of recurrent CVA in the past and vascular dementia, this is at baseline # htn: continue on amlodipine, holding krys-i/hctz # constipation: bowel regime # IP status Patient new to my care. Old records reviewed/summarized as above. Care plan reviewed with Dr. Camarillo on multidisciplinary team rounds. Subjective: no significant overnight events, patient currently feeling sleepy but otherwise no complaints Objective: Vital Signs Temp Pulse Resp BP Pulse Ox 36.4 C 73 12 110/58 L 86 L 12/23/17 03:48 12/23/17 12:00 12/23/17 12:00 12/23/17 12:00 12/23/17 12:00 Laboratory Results 12/23/17 05:43 12/22/17 12/23/17 12/24/17 05:59 05:59 05:59 Intake Total 1364 Output Total 200 Balance 1164 PT 12.8 SEC (12.0-15.0) 12/22/17 11:45 INR 0.97 (0.83-1.16) 12/22/17 11:45 awake alert somnolent anicteric op clear rrr no mrg cta b to ant exam soft nt nd no cce warm dry well perfused oriented x 2 appropriate ICD10 Worksheet Patient Problems: Problems Problem Status Onset Cerebral infarction Acute Cerebral hemorrhage Acute UTI (urinary tract infection) Acute Failure to thrive in adult Acute Back pain Acute Altered mental status Acute Syncope Acute Intracranial hemorrhage Acute Fall Acute
[2017-12-23] MEDS ORDERED: ONDANSETRON 4 MG/2 ML VIAL ONE (15:40)
--- NOTE | 2017-12-23 15:49 | GCON ---
[f rep st] CONSULTATION CRITICAL CARE CONSULTATION DATE OF CONSULTATION: 12/23/2017 HISTORY OF PRESENT ILLNESS: This patient is a 77-year-old female with a history of strokes in the banner and is on Plavix, as well as chronic NSAID therapy, but no oral anticoagulants, who requires near 24-hour home care because of a history of falls. Apparently, she was in the bathroom and unwitnessed and had a fall and was taken to the emergency department, where she was found to have a left frontal subarachnoid hemorrhage. She was unaware of what happened and is generally not a very communicative person, according to her daughter. She did complain of headaches, but no other obvious symptoms. Celsa Ambrosio was consulted and did not recommend surgical intervention. REVIEW OF SYSTEMS: Otherwise negative. PAST MEDICAL HISTORY: Includes: 1. Multiple strokes in the past, most recently December of 2015, with subsequent development of dementia. 2. Hypertension. 3. Tremor. 4. Recent GI bleeding with a stay at [facility] between 12/01 and 12/04/2017, where she complained of hematemesis. She did have a drop in hematocrit while there, but this was thought to b e dilutional as an upper and lower endoscopy were both normal. 5. Hemorrhoids. 6. Malnutrition. 7. Constipation. 8. Chronic groin pain. 9. Carotid artery stenosis. PAST SURGICAL HISTORY: Includes carotid endarterectomy, total hip arthroplasty, left clavicle fractu re repair, and lumbar fusion in the past. FAMILY HISTORY: Noncontributory. SOCIAL HISTORY: She is a nonsmoker. No alcohol or IV drug use. MEDICATIONS: At this time include Tylenol, Norvasc, Abilify, Dulcolax, Wellbutrin, Refresh, Zyrtec, Neurontin, Dilaudid, melatonin, Protonix, Pravachol. PHYSICAL EXAMINATION: VITAL SIGNS: She was afebrile. Her blood pressure was 122/66, with a heart r ate of 77, respirations 17, oxygen saturation 93% on room air. GENERAL: While she was awake and bettina rt and did nod her head appropriately, she was largely nonverbal. HEENT: Otherwise, pupils equally round and reactive to light, nonicteric and noninjected. Mucous membranes are moist, without erythe ma or exudate. NECK: Supple, without adenopathy or jugular vein distention. LUNGS: Breath sounds were clear to auscultation bilaterally, without wheezes or rales. HEART: Regular rate and rhythm, w ithout murmurs, rubs, gallops. ABDOMEN: Soft, nontender, nondistended, without hepatosplenomegaly. EXTREMITIES: No clubbing, cyanosis, or edema. NEUROLOGICAL: Exam is nonfocal to my exam, without obvious cranial nerve abnormalities. SKIN: Warm and dry, without evidence of rash. Objective data includes [address]s that showed moderate atrophy, but a stable subarachnoid hemorrhage in the left frontal lobe, as well as nonspecific other hypodensities thought to be remote strokes. LABORATORY DATA: Her white count was 9.7. Hematocrit was 38, platelets 370. Normal basic metabolic panel. ASSESSMENT/PLAN: 1. Left-sided stroke. She is being followed by the Neurosurgery service with conservative managemen t and usual blood pressure goals of less than 140 and a sodium between 140 and 150, using 3% normal s bolivar. She seems to be tolerating this fairly well. 2. There was some concern about acute kidney injury. She has adequate urine output, and her creatin ine was 1.3. 3. Hypertension. We are holding her medications at this time and using the usual parameters. 4. Altered mental status. She appears to be at baseline, according to her daughter. We will contin shukri to watch this closely. /[id number]/MODL
[2017-12-23] MEDS ORDERED: ONDANSETRON 4 MG/2 ML VIAL IVP PRN (16:07)
[2017-12-23] MEDS: ACETAMINOPHEN 500 MG TAB PO SCH (20:36)
[2017-12-23] MEDS: MELATONIN 3 MG TAB PO SCH (20:36)
--- NOTE | 2017-12-24 07:19 | NEUSURGPN ---
Assessment/Plan: A/P:77 yo female,hx of dementia, with fall in bathroom on 12/22. CT scan showed tentorial SDH. Was on Plavix -intact and at baseline, denies headaches -Last HCT was stable, hold off on further scans unless pt declines -Ok to resume plavix at any time per Dr Ambrosio -PT/OT/COLLISION WORKER -Call NS with any neuro changes -Will d/w trauma today and see if ok for NS to sign off on this patient. She will not need any follow up in clinic. -Discussed with Dr. Ambrosio Subjective: Pt resting in bed, denies headache Objective: Awake and alert, oriented to self NAD VSS MAEx4 CN II-XII grossly intact No droop Follows all commands Motor / BUE/BLE Urinary Catheter in Place: No - Physician Discussed Patient with : Daily Neurosurgery Physical Exam - Vitals, I&O, Labs I and O 12/23/17 12/24/17 12/25/17 05:59 05:59 05:59 Intake Total 1364 700 Output Total 200 Balance 1164 700 Weight 55.33 kg Intake: Oral (ml) 500 700 IV Infused (ml) 864 Ns 1,000 ml @ 100 mls/hr 864 IV CONT JANUSZ Rx#: [id number] Output: Urine (ml) 200 Bedside Commode 0 Toilet 200 Other: Number of Voids 1 Incontinence 1 1 Toilet 1 1 Post Void Residual Scan Volume (ml) Toilet 106 Number of Emesis 2 Occurrences Vital Signs Temp Pulse Resp BP Pulse Ox 37.2 C 66 10 L 101/47 L 84 L 12/24/17 00:00 12/24/17 04:22 12/24/17 04:22 12/24/17 04:22 12/24/17 06:55 Laboratory Results 12/23/17 05:43 ICD10 Worksheet Patient Problems: Problems Problem Status Onset Back pain Acute Fall Acute Intracranial hemorrhage Acute Altered mental status Acute Cerebral hemorrhage Acute Cerebral infarction Acute Failure to thrive in adult Acute Syncope Acute UTI (urinary tract infection) Acute
[2017-12-24] MEDS: buPROPion XL 150 MG TAB PO SCH (09:02)
[2017-12-24] MEDS: GABAPENTIN 100 MG CAP PO SCH ×2 (09:03→19:56)
[2017-12-24] MEDS: PRAVASTATIN SODIUM 20 MG TAB PO SCH (09:03)
[2017-12-24] MEDS: SENNOSIDES/DOCUSATE SODIUM TAB PO SCH ×2 (09:03→19:56)
[2017-12-24] MEDS: CETIRIZINE 10 MG TAB PO SCH (09:04)
[2017-12-24] MEDS: PANTOPRAZOLE SODIUM 40 MG TAB PO SCH (09:04)
[2017-12-24] MEDS: ACETAMINOPHEN 500 MG TAB PO SCH ×2 (09:05→19:57)
[2017-12-24] MEDS: CARBAMIDE PEROXIDE 15 ML OTIC.BTL EACHEAR SCH ×2 (09:05→19:58)
[2017-12-24] MEDS: POLYETHYLENE GLYCOL 3350 17 GM PKT PO SCH (09:06)
--- NOTE | 2017-12-24 09:55 | ASMTCASEMG ---
Living Arrangements What is your living Answers: Alone arrangement? Who do you live with? Type Of Residence What kind of residence do Answers: House you live in? 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 (Syed) She fell at home and sustained an intracranial hemorrhage. Admit to SDU for frequent neurochecks. PT/OT/TUGBOAT OPERATOR/Inpatient rehab consults have been ordered. D/C plan TBD. CM will follow. Date Signed: 12/24/2017 09:54 AM Electronically Signed By:Heydi Jaramillo LCSW
--- NOTE | 2017-12-24 10:08 | NEUROPROG ---
Assessment: [id number] - Neurology Consult: - CC: Dr. Espinosa consulted neurology for traumatic subdural hematoma. Results placed in EMR for his review. - HPI: Pt with vascular dementia and poor gait for year presented to [facility] ER for an unwitnessed fall on 12/22/17. The patient could not recall how she fell but did report a headache after the fall. It was reported she had fallen several times in the past couple of years and sustained multiple injuries as a result. Her caregiver also reported she has problems with short term memory chronically. A head CT showed an acute intracranial hemorrhage. Neurosurgery saw and did not recommend any surgery. I initially saw the patient on 12/24/17. She was not oriented to date or place. She otherwise denied complaints. - PMHx: CVA (x3 w/most recent in December 2015 in thalamus w/subsequent vascular dementia), HTN, TIA, intention tremor, recent middle GI bleed, hemorrhoids, malnutrition, constipation, chronic groin pain, carotid stenosis PSHx: carotid endarterectomy, R WILD, ORIF left clavicle fx, lumbar fusion - Home Meds: lisinopril/HCTZ, pravastatin, amlodipine, gabapentin, abilify, zyrtec , plavix 75 mg qd, wellbutrin - SHx: no tobacco FHx: daughter alive - ROS: Pt denied acute fever, total vision loss, active severe chest pain, respiratory failure, total body severe rash, total bowel/bladder incontinence, psychosis, active seizures, or active bleeding - O: VS reviewed General: Alert Eyes: Fundoscopic exam not able to visualize optic disks CV: Heart RRR, no murmur, no carotid bruit Lungs: Clear to auscultation bilaterally, no rhonchi or rales Neuro: - Mental: . Oriented x person but not place/date . concentration appears normal . speech fluency/comprehension normal . memory appears reduced . fund of knowledge appear intact - Cranial Nerves: . II: PERRL, VFFTC . III/IV/: EOM shows disconjugate gaze (pt and her daughter report this finding present since ) . V: facial sensation intact to LT . VII: face symmetric to eye closure and smile . VIII: hearing intact to conversation . IX/X: uvula raises symmetrically . XI: SCM 5/5 B/L strength . XII: tongue protrudes midline w/nl strength - Motor: . Tone: normal tone in all 4 extremity . Strength: no pronator drift, strength generally normal but she reported her legs feel tired - Reflexes: B/L bic/BR/patella 2/4 - Sensory: all 4 extremity intact to light touch - Coord: [id number] wnl, HIMA wnl - Gait: deferred - Labs: 12/22/17- Chem BUN 35H Cr 1.3H - Rads: 12/22/17- Head CT: L occipital subgaleal hematoma w/countercoup intracranial hemorrhage adjacent to L anterior interhemispheric falx and interdigitating w/ sulci of L frontal subcortex, mod atrophy and CMVD, old lacunar infarct of R basal ganglia (I personally visualized the images on 12/24/17) - Assessment: 1. Vascular Dementia with unsteady gait: Pt with history of short term memory issues and poor balance predisposing to falls. This is likely what led to current fall which caused an intracranial hemorrhage and concussion to most likely explain her poor memory with fall. Treatment is supportive. Recommend f /u in neurology clinic 4 weeks after discharge to establish baseline. - 2. Traumatic Intracranial hemorrhage from fall on 12/22/17: Managed by neurosurgery, currently non-surgical - Plan: - Defer blood pressure guidelines and antiplatelet use to neurosurgery - No further inpatient w/u needed at this time from neurology perspective, neurology will sign off - F/U in neurology clinic 4 weeks after discharge to obtain neurologic baseline and care planning with family Objective: Vital Signs Temp Pulse Resp BP Pulse Ox 36.8 C 69 20 99/53 L 97 12/24/17 08:00 12/24/17 08:00 12/24/17 08:00 12/24/17 08:00 12/24/17 08:00 Laboratory Results 12/23/17 05:43 12/23/17 12/24/17 12/25/17 05:59 05:59 05:59 Intake Total 1364 700 Output Total 200 Balance 1164 700 PT 12.8 SEC (12.0-15.0) 12/22/17 11:45 INR 0.97 (0.83-1.16) 12/22/17 11:45 Allergies/Adverse Reactions: Latex, Natural Rubber Allergy (Severe, Verified 12/22/17 10:57) Rash procaine HCl [From Novocain] Allergy (Severe, Verified 12/22/17 10:57) nausea methylphenidate [From Ritalin] Allergy (Verified 12/22/17 10:57)
[2017-12-24] MEDS: ARIPiprazole 5 MG TAB PO SCH (11:25)
[2017-12-24 11:34] LABS: PLATELET COUNT 310 10^3/uL (150-400)
--- NOTE | 2017-12-24 11:35 | TRAUMAPN ---
Trauma Progress Note Assessment/Plan: PAD#1 12/23/2017 Assessment: At baseline, No complaints, Oriented to place/person, date = september 2017, cannot protrude tongue, will not cooperate with eye exam, New data - rib fracture is several weeks old F/u CT was unchanged Plan: Appreciate Dr. Fernando's input - will ask for neurology consult Continue to observe in SDU x 24 hours Await Neurology consult Start PPI given recent GI bleed on Plavix PAD#2 12/24/2017 Assessment: Neurologically at baseline. Neurology input appreciated. Eating Will not restart Plavix in spite of hx CVA/TIA given propensity to fall. Low room air SATS noted. Plan: Will " road test" her walking skills Will transfer to [facility] surg will work with IS. May need home O2 Subjective: No complaints Objective: Vital Signs Temp Pulse Resp BP Pulse Ox 36.8 C 69 20 99/53 L 97 12/24/17 08:00 12/24/17 08:00 12/24/17 08:00 12/24/17 08:00 12/24/17 08:00 12/23/17 12/24/17 12/25/17 05:59 05:59 05:59 Intake Total 1364 700 Output Total 200 Balance 1164 700 PT 12.8 SEC (12.0-15.0) 12/22/17 11:45 INR 0.97 (0.83-1.16) 12/22/17 11:45 Physical Exam - Physical Exam General Appearance: alert, no apparent distress Neck: non-tender, full range of motion, supple Respiratory: chest non-tender, lungs clear, normal breath sounds Cardiac/Chest: regular rate, rhythm Abdomen: normal bowel sounds, non-tender, soft Pelvic Exam: deferred Rectal: deferred Back: Normal inspection Skin: normal color, warm/dry Extremities: normal range of motion, non-tender, normal inspection Neuro/Psych: no motor/sensory deficits, alert, normal mood/affect Time Spent w/Patient (minutes): 25
[2017-12-24] MEDS: amLODIPine BESYLATE 5 MG TAB PO SCH (11:40)
--- NOTE | 2017-12-24 11:57 | PDINTPN ---
Dynamic Etching Processor Progress Note Assessment/Plan: Assessment/plan: 77 F with history of CVAs and vascular dementia had unwitnessed fall at home ( among several others in past) resulting in intracranial hemorrhage. She was on plavix for previous TIA, but did not require surgical intervention. * SAH- remains stable. BP, sodium per neurosurgery. PT/OT working with her * Plavix- I would favor dc plavix given recurrent falls coupled with impulsivity. She will FU with neurology in 4 weeks * HTN controlled * hypoxia- minor atelectasis- encourage IS, OOB, etc. * Subjective: No events Objective: Vital Signs Temp Pulse Resp BP Pulse Ox 36.8 C 69 20 99/53 L 97 12/24/17 08:00 12/24/17 08:00 12/24/17 08:00 12/24/17 08:00 12/24/17 08:00 Laboratory Results 12/24/17 11:19 12/24/17 11:19 12/23/17 12/24/17 12/25/17 05:59 05:59 05:59 Intake Total 1364 700 Output Total 200 Balance 1164 700 PT 12.8 SEC (12.0-15.0) 12/22/17 11:45 INR 0.97 (0.83-1.16) 12/22/17 11:45 Physical Exam - Physical Exam General Appearance: no apparent distress EENT: PERRL/EOMI Neck: supple Respiratory: lungs clear, normal breath sounds, No respiratory distress, No accessory muscle use Cardiac/Chest: regular rate, rhythm, No edema Abdomen: non-tender, soft, No distended Skin: normal color, warm/dry, No cyanosis Lymphatic: no adenopathy Extremities: No pedal edema Neuro/Psych: cognition abnormalities ICD10 Worksheet Patient Problems: Problems Problem Status Onset Back pain Acute Fall Acute Intracranial hemorrhage Acute Altered mental status Acute Cerebral hemorrhage Acute Cerebral infarction Acute Failure to thrive in adult Acute Syncope Acute UTI (urinary tract infection) Acute
--- NOTE | 2017-12-24 14:08 | HOSPPROG ---
Hospitalist Progress Note Assessment/Plan: 77-year-old female presenting with acute unwitnessed traumatic fall with subsequent intracranial hemorrhage Plan: # Intracranial hemorrhage. s/p trauma with left occipital hemorrhage noted on head CT, repeat head CT per Neurosurgery stable, goal sbp < 140 # fall: patient with hx of recurrent falls and unstable gait, discussed with family and this has been an issue even with caregivers at bedside. PT/OT involved, patient likely to return home with increased services. # kortney: improved , holding krys/hctz and given ongoing low bp will continue to hold # dementia: with hx of recurrent CVA in the past and vascular dementia, this is at baseline # htn: given low bp will hold home regimen including lisinopril, hctz, amlodipine # constipation: bowel regimen # IP status--suspect she is ready for dc whenever cleared by trauma/nsg Care plan reviewed with Dr. Camarillo on multidisciplinary team rounds. Subjective: no significant overnight events, patient is currently feeling much better, she notes she has been ambulating and eating Objective: Vital Signs Temp Pulse Resp BP Pulse Ox 36.8 C 65 16 100/50 L 94 12/24/17 13:48 12/24/17 13:48 12/24/17 13:48 12/24/17 13:48 12/24/17 13:48 Laboratory Results 12/24/17 11:19 12/24/17 11:19 12/23/17 12/24/17 12/25/17 05:59 05:59 05:59 Intake Total 1364 700 Output Total 200 Balance 1164 700 PT 12.8 SEC (12.0-15.0) 12/22/17 11:45 INR 0.97 (0.83-1.16) 12/22/17 11:45 awake alert somnolent anicteric op clear rrr no mrg cta b to ant exam soft nt nd no cce warm dry well perfused oriented x 2 appropriate ICD10 Worksheet Patient Problems: Problems Problem Status Onset Back pain Acute Fall Acute Intracranial hemorrhage Acute Altered mental status Acute Cerebral hemorrhage Acute Cerebral infarction Acute Failure to thrive in adult Acute Syncope Acute UTI (urinary tract infection) Acute
[2017-12-24] MEDS: MELATONIN 3 MG TAB PO SCH (19:57)
[2017-12-25] MEDS: ACETAMINOPHEN 500 MG TAB PO SCH (08:57)
[2017-12-25] MEDS: buPROPion XL 150 MG TAB PO SCH (08:57)
[2017-12-25] MEDS: PRAVASTATIN SODIUM 20 MG TAB PO SCH (08:57)
[2017-12-25] MEDS: PANTOPRAZOLE SODIUM 40 MG TAB PO SCH (08:57)
[2017-12-25] MEDS: SENNOSIDES/DOCUSATE SODIUM TAB PO SCH (08:57)
[2017-12-25] MEDS: GABAPENTIN 100 MG CAP PO SCH (08:58)
[2017-12-25] MEDS: CARBAMIDE PEROXIDE 15 ML OTIC.BTL EACHEAR SCH (08:58)
[2017-12-25] MEDS: POLYETHYLENE GLYCOL 3350 17 GM PKT PO SCH (08:58)
[2017-12-25] MEDS: CETIRIZINE 10 MG TAB PO SCH (08:58)
[2017-12-25 11:28] VITALS: BP 121/66
--- NOTE | 2017-12-25 13:27 | TRAUMAPN ---
Trauma Progress Note Assessment/Plan: PAD#1 12/23/2017 Assessment: At baseline, No complaints, Oriented to place/person, date = september 2017, cannot protrude tongue, will not cooperate with eye exam, New data - rib fracture is several weeks old F/u CT was unchanged Plan: Appreciate Dr. Fernando's input - will ask for neurology consult Continue to observe in SDU x 24 hours Await Neurology consult Start PPI given recent GI bleed on Plavix PAD#2 12/24/2017 Assessment: Neurologically at baseline. Neurology input appreciated. Eating Will not restart Plavix in spite of hx CVA/TIA given propensity to fall. Low room air SATS noted. Plan: Will " road test" her walking skills Will transfer to [place] surg will work with IS. May need home O2 PAD#3 12/25/2017 Assessment: Stable for discharge Subjective: Slight emesis with breakfast but tolerated lunch. Objective: Vital Signs Temp Pulse Resp BP Pulse Ox 36.6 C 81 15 121/66 H 96 12/25/17 11:25 12/25/17 11:25 12/25/17 11:25 12/25/17 11:25 12/25/17 11:25 Laboratory Results 12/24/17 11:19 12/24/17 11:19 12/24/17 12/25/17 12/26/17 05:59 05:59 05:59 Intake Total 700 300 480 Balance 700 300 480 PT 12.8 SEC (12.0-15.0) 12/22/17 11:45 INR 0.97 (0.83-1.16) 12/22/17 11:45 Physical Exam - Physical Exam General Appearance: WD/WN, no apparent distress EENT: other (No sutures to remove) Neck: non-tender, full range of motion, supple Respiratory: lungs clear Time Spent w/Patient (minutes): 15
--- NOTE | 2017-12-25 13:27 | GDS ---
[f rep st] DISCHARGE SUMMARY Anticipation for discharge later this afternoon. DISCHARGE DIAGNOSES: Fall in bathroom with left frontal intracranial hemorrhage and subgaleal hemato ma. She also has a diagnosis of a left 8th rib fracture, but that is an old fracture. She was on Pl avix because of a history of coronary artery surgery, as well as CVAs and TIAs. She is followed by Dr. Ambrosio for Neurosurgery. He has recommended nonoperative intervention. She robison s remained stable and is set from a neurosurgery standpoint for discharge. CONDITION ON DISCHARGE: Good. DISPOSITION: Home. DIET: There are no restrictions. She is to take her medications whole with liquids, and she is to u se thin liquids. DISCHARGE MEDICATIONS: Include Tylenol 1000 mg every 12 hours, melatonin 3 mg p.o. q.h.s. Her old m edications, which are continued, include pravastatin 20 mg daily; lisinopril/HCTZ 12.5, a half tab let daily. She takes Norvasc 5 mg daily, gabapentin 200 mg twice a day, Zyrtec 10 mg daily, vitamin C 500 mg daily, MiraLAX 17 g daily, Wellbutrin XL 150 mg daily, Celluvisc 1-3 drops in each eye daily for dry eyes. She will continue her Estring. Her Abilify was an old medication of hers, which was started in the hospital and quickly discontinued as it is no longer one of her regular medications. Her Plavix will be stopped. The family was asked to watch for fall potentials and to use a chair/bed alarm. If she develops a severe headache, she is to return to the ER. She is a fall risk, and they have a sitter there for 9 hours a day. She will follow up with her primary care provider, Tiffany Guerrier. She will also follow up with Dr. Yahir Landrum, Neurology. She will have her left back skin lesion addressed in the near future. The y will call Dr. Ambrosio's office if there are any neurological changes. /[id number]/MODL
--- NOTE | 2017-12-25 14:16 | HOSPPROG ---
Hospitalist Progress Note Assessment/Plan: 77-year-old female presenting with acute unwitnessed traumatic fall with subsequent intracranial hemorrhage Plan: # Intracranial hemorrhage. s/p trauma with left occipital hemorrhage noted on head CT, repeat head CT per Neurosurgery stable, goal sbp < 140 # fall: patient with hx of recurrent falls and unstable gait, discussed with family and this has been an issue even with caregivers at bedside. PT/OT involved, patient likely to return home with increased services. # kortney: improved , held krys/hctz on arrival, can be resumed now with normalized creatinine # dementia: with hx of recurrent CVA in the past and vascular dementia, this is at baseline # htn: bp low on arrival but is now creeping back up and slightly hypertensive, patient should have this followed up as an OP to determine if she needs modification of her BP regimen # constipation: bowel regimen # IP status--suspect she is ready for dc whenever cleared by trauma/nsg Care plan reviewed with Dr. Espinosa Subjective: no significant overnight events, patient feeling well, states she would like to go home Objective: Vital Signs Temp Pulse Resp BP Pulse Ox 36.6 C 81 15 121/66 H 96 12/25/17 11:25 12/25/17 11:25 12/25/17 11:25 12/25/17 11:25 12/25/17 11:25 Laboratory Results 12/24/17 11:19 12/24/17 11:19 12/24/17 12/25/17 12/26/17 05:59 05:59 05:59 Intake Total 700 300 480 Balance 700 300 480 PT 12.8 SEC (12.0-15.0) 12/22/17 11:45 INR 0.97 (0.83-1.16) 12/22/17 11:45 awake alert somnolent anicteric op clear rrr no mrg cta b to ant exam soft nt nd no cce warm dry well perfused oriented x 2 appropriate ICD10 Worksheet Patient Problems: Problems Problem Status Onset Back pain Acute Fall Acute Intracranial hemorrhage Acute Altered mental status Acute Cerebral hemorrhage Acute Cerebral infarction Acute Failure to thrive in adult Acute Syncope Acute UTI (urinary tract infection) Acute
--- NOTE | 2017-12-25 14:18 | GDS ---
[f rep st] DISCHARGE SUMMARY ADMITTING DIAGNOSIS: Fall with left frontal intracranial/subgaleal hematoma, patient on Plavix. The re was a diagnosis of a left 8th rib fracture that apparently is from a prior fall in the past. She also has mild dementia. Condition at discharge is to return stable preadmission state. Diet shows n o restrictions, with regular diet with thin liquids. She can take her medications whole with regular liquids. MEDICATIONS AT DISCHARGE: Include Tylenol 1000 mg every 12 hours, melatonin 3 mg at bedtime. She wi ll continue pravastatin sodium 20 mg daily, lisinopril hydrochlorothiazide 10/12.5 mg daily, Norvasc 5 mg daily, Neurontin 200 mg twice a day, Zyrtec 10 mg daily, vitamin C 500 mg daily, MiraLAX 17 g da sarah, Wellbutrin 150 mg XL daily, Celluvisc 1-3 drops each eye 4 times a day for dry eyes, Tylenol 100 0 mg twice a day p.r.n. pain, Estring every 90 days. She will stop her Plavix. Charles had been add ed to her medications and that was stopped. ACTIVITY: She is to watch for fall potential, use bed alarms, and if she develops a severe headache, to return to the ER for re-evaluation. She will follow up with Dr. Noman Ambrosio for neurosurgical i ssues. She will follow up with Dr. Yahir Landrum in approximately 2 weeks from a neurologic standpoin t. She will follow up with her primary care physician, Dr. Tiffany Ramos. She will follow up with Dr. Marty Rubi as needed. HOSPITAL COURSE: The patient was admitted and observed. Her neurologic status was stable. It did n ot deteriorate. Followup scans were not performed. Her daughter, Isabel, and her significant other, Syed, are well aware of her needs. They do have in- home provider to keep her from falling. They have gotten a bed alarm and side rails to help prevent her from getting out of bed at night unwitnessed. I feel it is safe for her to return to return home at this time. /[id number]/MODL
--- NOTE | 2017-12-25 17:44 | ASMTLACE ---
WANDA Length of stay for Answers: 3 days current admission Acuity / Level of Answers: Yes Care: Did the patient have an inpatient admission? Comorbidities - select Answers: Cerebrovascular disease all that apply (CVA, TIA, aneurysms, vasc ular dementia) Dementia Other Notes: h/o hip fracture, lumba r fusion, footdrop, HTN # of Emergency department Answers: 1-2 visits in the last 6 months Score: 12 Date Signed: 12/25/2017 05:44 PM Electronically Signed By:Donna Edouard RN
--- NOTE | 2017-12-25 17:52 | ASDISCHSUM ---
Discharge Information Plan Status:Home with No Needs Medically Cleared to Leave:12/25/2017 Discharge Date:12/25/2017 03:38 PM CM D/C Disposition:Home, Routine, Self-Care ADT D/C Disposition:Home, Routine, Self-Care Projected Discharge Date:12/25/2017 03:38 PM Transportation at D/C:Family Discharge Delay Reason: Follow-Up Date:12/25/2017 03:38 PM Discharge Slot:2 - 12:01 pm - 18:00 pm Final Diagnosis:Frontal intracranial/subgaleal hemorrhage, mild dementia, left 8th rib fracture Placement Information Patient Contact Information Contact Name:LULÚ Relationship:Daughter Address: City:[place] Alternate Phone: [facility] Code:[place] Email: Financial Information Financial Class:Medicare Advantage Plans Primary Plan Desc:[facility] [employer] Primary Plan Number:[id number] Secondary Plan Desc: Secondary Plan Number: Assessment Information LACE LACE Length of stay for Answers: 3 days current admission Acuity / Level of Answers: Yes Care: Did the patient have an inpatient admission? Comorbidities - select Answers: Cerebrovascular disease all that apply (CVA, TIA, aneurysms, vasc ular dementia) Dementia Other Notes: h/o hip fracture, lumba r fusion, footdrop, HTN # of Emergency department Answers: 1-2 visits in the last 6 months Score: 12 Date Signed: 12/25/2017 05:44 PM Electronically Signed By:Donna Edouard RN [facility] Initial CM Assessment Living Arrangements What is your living Answers: Alone arrangement? Who do you live with? Type Of Residence What kind of residence do Answers: House you live in? Discharge Plan Comments Coordination Status Comments Notes: Patient is a 77yo female who has a boyfriend/branch administrator. (Syed) She fell at home and sustained an intracranial hemorrhage. Admit to SDU for frequent neurochecks. PT/OT/FLOW FLOOR ATTENDANT/Inpatient rehab consults have been ordered. D/C plan TBD. CM will follow. Date Signed: 12/24/2017 09:54 AM Electronically Signed By:Heydi Jaramillo LCSW Case Management Discharge Plan Note Case Management Discharge Discharge Order Complete? Answers: Yes Patient to Obtain Answers: via Family Medications Transportation Arranged Answers: Family/Friends Transport will Pick (Date 12/25/2017 12:00 AM & Time) EMTALA Complete Answers: No Notes: N/A Case Management Transport Answers: No Notes: N/A Form Complete Faxed Final Orders Answers: No Notes: N/A Agency/Facility Transfer Answers: No Notes: N/A Report Printed & Faxed to Receiving Agency Family Notified Answers: Yes Notes: At bedside Discharge Comments Notes: Reviewed chart, spoke with TASHIA Dias regarding discharge plan of care, pt's progress. Per notes, pt to discharge home today with family support and an in-home caregiver. Per Larissa, pt does not need home health care. The family has obtained a bed alarm and has hired an in-home caregiver to assist. Pt lives with her partner/boyfriend Syed and her dghtr, Isabel is involved in her care. No IM signed, pt unavailable when CM attempted. Pt to follow up as directed. CM available for any further issues or concerns. Discharge Plan: Home with family support and an in-home caregiver Date Signed: 12/25/2017 05:49 PM Electronically Signed By:Donna Edouard RN Intervention Information Intervention Type:IM-Pt. Not Available Date of Service:12/25/2017 05:51 PM Patient Type:Inpatient Staff Member:TASHIA Edouard Taylor Hours: Discipline: Severity: Comment:
== END 2017-12-25 15:38 | disposition home or self-care (01) | DRG 87 ==
LOC: CED 10:40 → CEDHOLD 12:46 → OBSVTOIN 12:46 → F2N 15:49 → F3N 12-24 12:36
PROVIDERS: ADMIT Surgery; ATTEND Neurological Surgery
DX: S06.2X0A Diffuse traumatic brain injury without loss of consciousness, initial encounter (principal); W01.0XXA Fall on same level from slipping, tripping and stumbling without subsequent striking against object, initial encounter; S22.32XD Fracture of one rib, left side, subsequent encounter for fracture with routine healing; F01.50 Vascular dementia, unspecified severity, without behavioral disturbance, psychotic disturbance, mood disturbance, and anxiety; I10 Essential (primary) hypertension; Z86.73 Personal history of transient ischemic attack (TIA), and cerebral infarction without residual deficits; Z96.641 Presence of right artificial hip joint
CPT/HCPCS: 70450-PO; 71045-PO; 72100-PO; 72125-PO; 72170-PO; 80048-PO; 84484-PO; 85025-PO; 85610-PO; 92507-GN; 92523-GN; 92610-GN; 96374; 97116-GP; 97161-GP; 97166-GO; 97535-GO; G8978-GP-CJ; G8979-GP-CI; G8987-GO-CK; G8988-GO-CJ; G9165-GN-CL; G9166-GN-CK; J2270; J2405